=== PATIENT | male | born 1950 | race Caucasian/White ===

== ENCOUNTER → 2017-02-07 | Outpatient (CLI) | payer MEDICARE, OTHER ==
[~2017-02-07] VITALS: Ht 165.1 cm; Wt 106.8 kg
[~2017-02-07] MED LIST: ACET-2321 PO; ALLO300T2 PO; ASPI-557 PO; ASPI-917 PO; ATOR20TA59 PO; ATOR40TA64 PO; CARV12.52 PO; CARV25TA PO; CLOP75TA19 PO; COLC0.6T70 PO; FURO40TA70 PO; MELO-273 PO; NAPR220T61 PO; NITR12SP5; PANT40TA27 PO; POLY17PO18 PO; POTA10TA92 PO; REGADENOSON 0.4mg/5ml INJECTION IV ONE; SALINE FLUSH 10ml SYRINGE ONE; TRAM50TA53 PO; UBID100C10 PO; VENL150T7 PO; ZOLP-109 PO
--- NOTE | 2017-02-09 10:36 | ESTF ---
PHARMACOLOGICAL STRESS NUCLEAR SCAN DATE 02/07/2017 INDICATION PROCEDURE The patient was unable to fully exercise on the treadmill. The patient underwent injection of technetium-99m Myoview dose of 13.2 mCi, Lexiscan dose of 0.4 mg with low-level exercise followed by technetium-99m Myoview dose of 27.3 mCi. Stress and rest perfusion images were obtained per protocol. Rest EKG shows sinus rhythm, nonspecific T-wave abnormality present throughout less than 0.5 mm in inferolateral leads. In early recovery appeared to be increased ST segment depression, borderline 0.5-1 mm, and essentially back to baseline 4 minutes into recovery. There was some additional artifact noted in recovery, however, on some strips. There was occasional PVCs present as well. The EKG portion is considered borderline positive. Stress and rest perfusion images showed reduced uptake in the anteroseptum into the mid anterior wall of a mild to moderate degree and appeared to redistribute on rest images suggestive of mild to moderate reversible ischemia. This area actually extends to the anterolateral wall as well. Some reduced uptake is noted in the inferolateral wall with equivocal to mild redistribution there. Gated images show normal wall motion, normal contractility, normal LV ejection fraction which measured 58% on stress images and 62% on rest images. Rotatogram did not show any significant abnormality. IMPRESSION: 1. Inability to perform full treadmill test. 2. Pharmacological/low-level exercise stress nuclear scan clinically associated with mild dyspnea but no chest pain, electrically borderline positive with mild additional ST segment depression as noted above and occasional PVCs and scintigraphically positive for up to moderate reversible ischemia in the anterior and anteroseptal wall. In addition, equivocal reversible ischemia in the inferior/inferolateral wall is noted. 3. Gated images show normal wall motion, normal contractility, and normal LV ejection fraction - 58% on stress images and 62% on rest images. DISCUSSION AND PLAN Discuss results with the patient regarding further management and consideration of heart catheterization. JAYDEN
== END ==
LOC: IMA 07:44
PROVIDERS: ATTEND Internal Medicine Cardiovascular Disease
DX: I49.3 Ventricular premature depolarization (principal); R06.00 Dyspnea, unspecified; R26.2 Difficulty in walking, not elsewhere classified; R94.39 Abnormal result of other cardiovascular function study; I20.9 Angina pectoris, unspecified
CPT/HCPCS: 78452; 93017; A9502; J2785

== ENCOUNTER 2017-02-13 14:09 | Inpatient (IN) | payer MEDICARE, OTHER ==
[~2017-02-13] VITALS: Ht 165.1 cm; Wt 109.0 kg
[2017-02-13] VITALS (12 sets, daily range): BP systolic 115–141; BP diastolic 64–80; PULSE 66–78; RESP 11–24; TEMP 98–98.4; O2SAT 89–95; Ht 165.1 cm; Wt 109.0 kg
[~2017-02-13 14:09] MED LIST changes: -ASPI-557 PO; -ATOR40TA64 PO; -CARV12.52 PO; -MELO-273 PO; -REGADENOSON 0.4mg/5ml INJECTION IV ONE; -SALINE FLUSH 10ml SYRINGE ONE
--- OUTSIDE RECORDS SUMMARY | 2017-02-13 14:15 | XMS REPORT | Referral Summary ---
Author Author [facility] Organization [facility] Address Unknown Phone Unavailable Care Team Providers Care Protective Signal Operator Name Role Phone Leida Aranda Primary Care Physician [phone] Encounter [facility] [id number] Date(s): 07/01/15 - 07/01/15 [facility] [address] [place] [phone] Discharge Disposition: 01-Home or Self Care Attending Physician: Ahmet Aranda MD Admitting Physician: Ahmet Aranda MD Vital Signs Most recent to 1 oldest [Reference Range]: Blood Pressure 122/74 mmHg [90-140/60-90 mmHg] (07/01/15 10:02 AM) Problem List Condition Effective Dates Status Health Status Informant CAD (coronary artery Active disease) of artery bypass graft(Confirmed) Essential Active hypertension, benign(Confirmed) Hematuria(Confirmed) Active Diabetes(Confirmed) Active Acute Active gout(Confirmed) Renal Active calculus(Confirmed) Restless leg Active syndrome(Confirmed) Encounter for Active prostate cancer screening(Confirmed) Tension Active headaches(Confirmed) Upper abdominal pain Active L and R(Confirmed) Ureteral Active calculus(Confirmed) Allergies, Adverse Reactions, Alerts No Known Medication Allergies Medications acetaminophen 325 mg oral tablet 650 mg 2 tabs, Oral, QID, 0 Refill(s) Start Date: 01/08/16 Status: Ordered allopurinol 300 mg oral tablet 300 mg 1 tabs, Oral, Daily, # 90 tabs, 1 Refill(s), Pharmacy: [facility] # [id number], 1 tabs Oral Daily Start Date: 11/11/15 Status: Ordered Ambien 10 mg oral tablet 10 mg 1 tabs, Oral, Bedtime (once a day), MUST LAST 90 DAYS [facility] /DR. DOMINGUEZ FOR DR. ARANDA, # 90 Each, 0 Refill(s) Start Date: 12/07/15 Status: Ordered aspirin 81 mg oral tablet, disintegrating 1 tabs, Oral, Daily, 0 Refill(s) Start Date: 10/07/14 Status: Ordered atorvastatin 20 mg oral tablet 20 mg 1 tabs, Oral, Daily, Dr. Rich, # 30 tabs, 0 Refill(s) Start Date: 12/29/15 Status: Ordered carvedilol 12.5 mg oral tablet 12.5 mg 1 tabs, Oral, BID, # 180 tabs, 0 Refill(s) Start Date: 11/11/15 Status: Ordered Co-Q10 Oral, 0 Refill(s) Start Date: 12/29/15 Status: Ordered Colcrys 0.6 mg oral tablet 1.2 mg 2 tabs, Oral, Daily, as needed for gout pain, 2 tabs at the first sign of a gout flare followed by 0.6 mg one hour later, # 30 tabs, 0 Refill(s), Pharmacy: [id number] Start Date: 06/26/15 Stop Date: 06/26/15 Status: Ordered Glucometer strips (DME) DME Item Contour Test Strips. Test blood sugars daily as directed by physician. , See Instructions, 0 Refill(s), Supply Start Date: 10/07/14 Status: Ordered Klor-Con M10 oral tablet, extended release 10 mEq 1 tabs, Oral, Daily, # 90 tabs, 1 Refill(s), Pharmacy: [facility] # [id number], 1 tabs Oral Daily,x90 days Start Date: 12/24/15 Stop Date: 03/23/16 Status: Ordered Lasix 40 mg oral tablet 40 mg 1 tabs, Oral, BID, # 90 tabs, 1 Refill(s), Pharmacy: [facility] # [id number], 1 tabs Oral Daily Start Date: 11/03/15 Status: Ordered MiraLax 17 g, Oral, Daily, 0 Refill(s) Start Date: 01/08/16 Status: Ordered nitroglycerin 0.4 mg sublingual spray 1 sprays, SubLingual, as needed for chest pain, may repeat 2 times with about 5 min between them, 0 Refill(s) Start Date: 10/07/14 Status: Ordered oxyCODONE 5 mg oral tablet 1-3 tabs, Oral, q3hr, as needed for pain, 0 Refill(s) Start Date: 01/08/16 Status: Ordered pantoprazole 40 mg oral delayed release tablet See Instructions, TAKE 1 TABLET DAILY, # 90 tabs, 3 Refill(s), eRx: [facility], TAKE 1 TABLET DAILY Start Date: 03/09/15 Status: Ordered Plavix 75 mg oral tablet 75 mg 1 tabs, Oral, Daily, # 30 tabs, 3 Refill(s), Pharmacy: [facility] # [id number], 1 tabs Oral Daily Start Date: 11/30/15 Status: Ordered venlafaxine 150 mg oral tablet, extended release See Instructions, TAKE 1 TABLET(=150MG)EVERY DAY IN THE MORNING AT THE SAME TIME EACH DAY WITH FOOD, # 90 tabs, 1 Refill(s), eRx: [facility], TAKE 1 TABLET(=150MG)EVERY DAY IN THE MORNING AT THE SAME TIME EACH DAY WITH FOOD Start Date: 04/28/15 Status: Ordered Results No data available for this section Immunizations Vaccine Date Refusal Reason pneumococcal 23-polyvalent vaccine 10/24/07 Procedures Procedure Date Related Diagnosis Body Site S/P quadruple vessel bypass 06/05/14 Cysto, removal of RT DBL J stent 10/13/10 Cysto, balloon dil, RT DBL J stent RT LITHO 09/22/10 Chondroplasty R knee (w/PPM/PLM) buhr 10/19/07 R knee PMM/PLM w/chondroplasty Buhr 10/19/07 L knee PMM/PLM Buhr 06/22/07 Lithotripsy 07/23/03 Lithotripsy 04/21/99 Cystourethroscopy 04/20/99 Ureteroscopy 04/20/99 Lithotripsy 03/24/99 cystourethroscopy and removal of stent Social History Social History Type Response Smoking Status Former smoker; Type: Oral1, 2 1Quit "a few months ago" 2current chewing Assessment and Plan Extracted from: Title: Ambulatory Patient Education Author: Ahmet Aranda MD Date: Family Medicine Gout Gout is an inflammatory arthritis caused by a buildup of uric acid crystals in the joints. Uric acid is a chemical that is normally present in the blood. When the level of uric acid in the blood is too high it can form crystals that deposit in your joints and tissues. This causes joint redness, soreness, and swelling (inflammation). Repeat attacks are common. Over time, uric acid crystals can form into masses (tophi) near a joint, destroying bone and causing disfigurement. Gout is treatable and often preventable. CAUSES The disease begins with elevated levels of uric acid in the blood. Uric acid is produced by your body when it breaks down a naturally found substance called purines. Certain foods you eat, such as meats and fish, contain high amounts of purines. Causes of an elevated uric acid level include: Being passed down from parent to child (heredity). Diseases that cause increased uric acid production (such as obesity, psoriasis, and certain cancers). Excessive alcohol use. Diet, especially diets rich in meat and seafood. Medicines, including certain cancer-fighting medicines (chemotherapy), water pills (diuretics), and aspirin. Chronic kidney disease. The kidneys are no longer able to remove uric acid well. Problems with metabolism. Conditions strongly associated with gout include: Obesity. High blood pressure. High cholesterol. Diabetes. Not everyone with elevated uric acid levels gets gout. It is not understood why some people get gout and others do not. Surgery, joint injury, and eating too much of certain foods are some of the factors that can lead to gout attacks. SYMPTOMS An attack of gout comes on quickly. It causes intense pain with redness, swelling, and warmth in a joint. Fever can occur. Often, only one joint is involved. Certain joints are more commonly involved: Base of the big toe. Knee. Ankle. Wrist. Finger. Without treatment, an attack usually goes away in a few days to weeks. Between attacks, you usually will not have symptoms, which is different from many other forms of arthritis. DIAGNOSIS Your caregiver will suspect gout based on your symptoms and exam. In some cases , tests may be recommended. The tests may include: Blood tests. Urine tests. X-rays. Joint fluid exam. This exam requires a needle to remove fluid from the joint (arthrocentesis). Using a microscope, gout is confirmed when uric acid crystals are seen in the joint fluid. TREATMENT There are two phases to gout treatment: treating the sudden onset (acute) attack and preventing attacks (prophylaxis). Treatment of an Acute Attack. Medicines are used. These include anti-inflammatory medicines or steroid medicines. An injection of steroid medicine into the affected joint is sometimes necessary. The painful joint is rested. Movement can worsen the arthritis. You may use warm or cold treatments on painful joints, depending which works best for you. Treatment to Prevent Attacks. If you suffer from frequent gout attacks, your caregiver may advise preventive medicine. These medicines are started after the acute attack subsides. These medicines either help your kidneys eliminate uric acid from your body or decrease your uric acid production. You may need to stay on these medicines for a very long time. The early phase of treatment with preventive medicine can be associated with an increase in acute gout attacks. For this reason, during the first few months of treatment, your caregiver may also advise you to take medicines usually used for acute gout treatment. Be sure you understand your caregiver's directions. Your caregiver may make several adjustments to your medicine dose before these medicines are effective. Discuss dietary treatment with your caregiver or dietitian. Alcohol and drinks high in sugar and fructose and foods such as meat, poultry, and seafood can increase uric acid levels. Your caregiver or talent buyer can advise you on drinks and foods that should be limited. HOME CARE INSTRUCTIONS Do not take aspirin to relieve pain. This raises uric acid levels. Only take [id number] or prescription medicines for pain, discomfort, or fever as directed by your caregiver. Rest the joint as much as possible. When in bed, keep sheets and blankets off painful areas. Keep the affected joint raised (elevated). Apply warm or cold treatments to painful joints. Use of warm or cold treatments depends on which works best for you. Use crutches if the painful joint is in your leg. Drink enough fluids to keep your urine clear or pale yellow. This helps your body get rid of uric acid. Limit alcohol, sugary drinks, and fructose drinks. Follow your dietary instructions. Pay careful attention to the amount of protein you eat. Your daily diet should emphasize fruits, vegetables, whole grains, and fat-free or low-fat milk products. Discuss the use of coffee, vitamin C, and cherries with your caregiver or talent buyer. These may be helpful in lowering uric acid levels. Maintain a healthy body weight. SEEK MEDICAL CARE IF: You develop diarrhea, vomiting, or any side effects from medicines. You do not feel better in 24 hours, or you are getting worse. SEEK IMMEDIATE MEDICAL CARE IF: Your joint becomes suddenly more tender, and you have chills or a fever. MAKE SURE YOU: Understand these instructions. Will watch your condition. Will get help right away if you are not doing well or get worse. Document Released: 10/20/2001 Document Revised: 02/17/2014 Document Reviewed: Exit[employer] Patient Information 2015 [employer]. This information is not intended to replace advice given to you by your health care provider. Make sure you discuss any questions you have with your health care provider. No follow up information was provided. Extracted from: Title: Office Visit Note Author: Ahmet Aranda MD Date: 07/01/15 Assessment/Plan Acute gout Continue with the current medication and recheck a uric acid level in 2 weeks. Start Allopurinol 100mg daily. Ordered: Office Visit Level 3 Est 66051
--- OUTSIDE RECORDS SUMMARY | 2017-02-13 14:15 | XMS REPORT | Referral Summary ---
Author Author [facility] Organization [facility] Address Unknown Phone Unavailable Care Team Providers Care Steam Shovelman Name Role Phone Leida Aranda Primary Care Physician [phone] Encounter [facility] [id number] Date(s): 01/14/16 - 01/14/16 [facility] [address] [place] [phone] Discharge Disposition: 01-Home or Self Care Attending Physician: Ahmet Aranda MD Admitting Physician: Ahmet Aranda MD Vital Signs Most recent to 1 oldest [Reference Range]: Blood Pressure 138/70 mmHg [90-140/60-90 mmHg] (01/14/16 10:23 AM) Problem List Condition Effective Dates Status [...] Daily, # 90 tabs, 1 Refill(s), Pharmacy: [facility] # [id number], 1 tabs Oral Daily Start Date: 11/11/15 Status: Ordered Ambien 10 mg oral tablet 10 mg 1 tabs, Oral, Bedtime (once a day), MUST LAST 90 DAYS Robbie Howard, # 90 Each, 0 Refill(s) Start Date: 01/14/16 Status: Ordered aspirin 81 mg oral tablet, disintegrating 1 tabs, Oral, Daily, 0 Refill(s) Start Date: 10/07/14 Status: Ordered atorvastatin 20 mg oral tablet 20 mg 1 tabs, Oral, Daily, Dr. Rich, # 30 tabs, 0 Refill(s) Start Date: 12/29/15 Status: Ordered carvedilol 12.5 mg oral tablet 12.5 mg 1 tabs, Oral, BID, # 180 tabs, 0 Refill(s) Start Date: 11/11/15 Status: Ordered cefadroxil 500 mg oral capsule 500 mg 1 caps, Oral, q12hr, X 10 days, # 20 caps, 0 Refill(s), Pharmacy: [facility] #[id number], 1 caps Oral q12hr,x10 days Start Date: 01/14/16 Stop Date: 01/24/16 Status: Ordered Co-Q10 Oral, 0 Refill(s) Start Date: 12/29/15 Status: Ordered Colcrys 0.6 mg oral tablet 1.2 mg 2 tabs, Oral, Daily, as needed for gout pain, 2 tabs at the first sign of a gout flare followed by 0.6 mg one hour later, # 30 tabs, 0 Refill(s), Pharmacy: [id number] Start Date: 06/26/15 Stop Date: 06/26/15 Status: Ordered Glucometer strips (DME) DME Item Contour Test Strips. Test blood sugars daily as directed by physician. , See Instructions, 0 Refill(s), Supply Start Date: 10/07/14 Status: Ordered Klor-Con M10 oral tablet, extended release 10 mEq 1 tabs, Oral, Daily, # 90 tabs, 1 Refill(s), Pharmacy: [facility] # [id number], 1 tabs Oral Daily,x90 days Start Date: 12/24/15 Stop Date: 03/23/16 Status: Ordered Lasix 40 mg oral tablet 40 mg 1 tabs, Oral, BID, # 90 tabs, 1 Refill(s), Pharmacy: [facility] # [id number], 1 tabs Oral Daily Start Date: 11/03/15 [...] DAILY, # 90 tabs, 3 Refill(s), eRx: [facility], TAKE 1 TABLET DAILY Start Date: 03/09/15 Status: Ordered Plavix 75 mg oral tablet 75 mg 1 tabs, Oral, Daily, # 30 tabs, 3 Refill(s), Pharmacy: [facility] # [id number], 1 tabs Oral Daily Start Date: 11/30/15 Status: Ordered venlafaxine 150 mg oral tablet, extended release See Instructions, TAKE 1 TABLET(=150MG)EVERY DAY IN THE MORNING AT THE SAME TIME EACH DAY WITH FOOD, # 90 tabs, 1 Refill(s), eRx: [facility], TAKE 1 TABLET(=150MG)EVERY DAY IN [...] months ago" 2current chewing Assessment and Plan No data available for this section
--- OUTSIDE RECORDS SUMMARY | 2017-02-13 14:16 | XMS REPORT | Referral Summary ---
Author Organization Unknown Address Unknown Phone Unavailable Care Team Providers Care Carpenter Labor Supervisor Name Role Phone Leida Aranda Primary Care Physician [phone] Encounter [facility] [id number] Date(s): 01/06/15 - 01/06/15 [address] [facility], [address] [place] [id number]- Discharge Diagnosis: Encounter for prostate cancer screening Discharge Diagnosis: CAD (coronary artery disease) of artery bypass graft Discharge Diagnosis: Essential hypertension, benign Discharge Diagnosis: Diabetes Discharge Disposition: Home or Self Care Attending Physician: Ahmet Aranda MD Admitting Physician: Ahmet Aranda MD Vital Signs Most recent to 1 oldest [Reference Range]: Temperature Tympanic 36.7 degC [36.6-38.1 degC] (01/06/15 8:47 AM) Blood Pressure 128/86 mmHg [90-140/60-90 mmHg] (01/06/15 8:47 AM) Problem List Condition Effective Dates Status Health Status Informant CAD (coronary artery Active disease) of artery bypass graft(Confirmed) Essential Active hypertension, benign(Confirmed) Hematuria(Confirmed) Active Diabetes(Confirmed) Active Renal Active calculus(Confirmed) Restless leg Active syndrome(Confirmed) Encounter for Active prostate cancer screening(Confirmed) Tension Active headaches(Confirmed) Upper abdominal pain Active L and R(Confirmed) Ureteral Active calculus(Confirmed) Allergies, Adverse Reactions, Alerts No Known Medication Allergies Medications Ambien 10 mg oral tablet 1 tabs, Oral, Bedtime (once a day), # 30 tabs, 0 Refill(s) Start Date: 10/08/14 Status: Ordered aspirin 81 mg oral tablet, disintegrating 1 tabs, Oral, Daily, 0 Refill(s) Start Date: 10/07/14 Status: Ordered carvedilol 12.5 mg oral tablet 1 tabs, Oral, BID, # 180 tabs, 0 Refill(s) Start Date: 10/08/14 Status: Ordered gemfibrozil 600 mg oral tablet 1 tabs, Oral, BID, # 180 tabs, 0 Refill(s) Start Date: 10/08/14 Status: Ordered Glucometer strips (DME) DME Item Contour Test Strips. Test blood sugars daily as directed by physician. , See Instructions, 0 Refill(s), Supply Special Instructions: Contour Test Strips. Test blood sugars daily as directed by physician. Start Date: 10/07/14 Status: Ordered Klor-Con 10 oral tablet, extended release See Instructions, TAKE 1 TABLET DAILY *PLEASEMAKE APPOINTMENT*, # 90 tabs, 1 Refill(s), eRx: [facility], TAKE 1 TABLET DAILY * PLEASEMAKE APPOINTMENT* Special Instructions: TAKE 1 TABLET DAILY *PLEASEMAKE APPOINTMENT* Start Date: 11/27/14 Status: Ordered Lasix 40 mg oral tablet 1 tabs, Oral, Daily, # 90 tabs, 3 Refill(s), Pharmacy: [facility], 1 tabs Oral Daily Start Date: 10/08/14 Status: Ordered nitroglycerin 0.4 mg sublingual spray 1 sprays, SubLingual, as needed for chest pain, may repeat 2 times with about 5 min between them, 0 Refill(s) Special Instructions: may repeat 2 times with about 5 min between them Start Date: 10/07/14 Status: Ordered pantoprazole 40 mg oral delayed release tablet See Instructions, TAKE 1 TABLET BY MOUTH EVERY DAY., # 90 unknown unit, 3 Refill (s), eRx: [facility], TAKE 1 TABLET BY MOUTH EVERY DAY. Special Instructions: TAKE 1 TABLET BY MOUTH EVERY DAY. Start Date: 04/10/14 Status: Ordered Plavix 75 mg oral tablet See Instructions, TAKE 1 TABLET DAILY, # 90 tabs, 1 Refill(s), eRx: [facility], TAKE 1 TABLET DAILY Special Instructions: TAKE 1 TABLET DAILY Start Date: 06/30/14 Status: Ordered venlafaxine 150 mg oral tablet, extended release See Instructions, TAKE 1 TABLET(=150MG)EVERY DAY IN THE MORNING AT THE SAME TIME EACH DAY WITH FOOD, # 90 tabs, 1 Refill(s), Pharmacy: [facility], TAKE 1 TABLET(=150MG)EVERY DAY IN THE MORNING AT THE SAME TIME EACH DAY WITH... Special Instructions: TAKE 1 TABLET(=150MG)EVERY DAY IN THE MORNING AT THE SAME TIME EACH DAY WITH FOOD Start Date: 12/22/14 Status: Ordered Results Hematology Most recent to 1 oldest [Reference Range]: WBC [4.8-10.8 K/uL] 6.3 K/uL (01/06/15 9:37 AM) RBC [4.60-6.20 M/uL] 4.86 M/uL (01/06/15 9:37 AM) Hgb [14.0-18.0 14.8 gm/dL gm/dL] (01/06/15 9:37 AM) Hct [42.0-52.0 %] 44.1 % (01/06/15 9:37 AM) MCV [82.0-99.0 fL] 90.7 fL (01/06/15 9:37 AM) MCH [27.0-32.0 pg] 30.5 pg (01/06/15 9:37 AM) MCHC [32.0-36.0 33.6 gm/dL gm/dL] (01/06/15 9:37 AM) RDW [11.5-14.5 %] 13.4 % (01/06/15 9:37 AM) Platelet [150-400 344 K/uL K/uL] (01/06/15 9:37 AM) MPV [8.8-14.8 fL] 9.8 fL (01/06/15 9:37 AM) Immature 0.2 % Granulocytes (01/06/15 9:37 AM) [0.0-1.0 %] Neutrophils [51-75 53 % %] (01/06/15 9:37 AM) Lymphocytes [20-46 35 % %] (01/06/15 9:37 AM) Monocytes [4-11 %] 10 % (01/06/15 9:37 AM) Eosinophils [0-4 %] 2 % (01/06/15 9:37 AM) Basophils [0-2 %] 0 % (01/06/15 9:37 AM) Neutro Absolute 3.36 THOUS [1.90-7.00 THOUS] (01/06/15 9:37 AM) Lymph Absolute 2.20 THOUS [0.80-3.30 THOUS] (01/06/15 9:37 AM) [place] Absolute 0.61 THOUS [0.30-1.00 THOUS] (01/06/15 9:37 AM) Eos Absolute 0.11 THOUS [0.00-0.50 THOUS] (01/06/15 9:37 AM) Baso Absolute 0.02 THOUS [0.00-0.20 THOUS] (01/06/15 9:37 AM) Chemistry Most recent to 1 oldest [Reference Range]: Sodium Lvl [135-144 142 mEq/L mEq/L] (01/06/15:37 AM) Potassium Lvl 3.9 mEq/L [3.5-5.2 mEq/L] (01/06/15:37 AM) Chloride [99-111 105 mEq/L mEq/L] (01/06/15:37 AM) CO2 [23-31 mEq/L] 24 mEq/L (01/06/15:37 AM) AGAP [3-20] 13 (01/06/15:37 AM) BUN [8-26 mg/dL] 19 mg/dL (01/06/15:37 AM) Glucose Lvl [70-99 136 mg/dL mg/dL] *HI* (01/06/15:37 AM) Creatinine Lvl 0.94 mg/dL [0.72-1.25 mg/dL] (01/06/15 9:37 AM) eGFR [>60 mL/min] >60 mL/min 1 (01/06/15:37 AM) Calcium Lvl 9.6 mg/dL [8.9-10.5 mg/dL] (01/06/15:37 AM) Albumin Lvl [3.4-4.8 4.3 gm/dL gm/dL] (01/06/15:37 AM) Total Protein 7.1 gm/dL [6.2-8.1 gm/dL] (01/06/15:37 AM) Globulin [1.8-4.0 2.8 gm/dL gm/dL] (01/06/15 9:37 AM) ALT [0-55 unit/L] 20 unit/L (01/06/15:37 AM) AST [5-34 unit/L] 17 unit/L (01/06/15 9:37 AM) Alk Phos [40-150 116 unit/L unit/L] (01/06/15 9:37 AM) Bili Total [0.2-1.2 0.6 mg/dL mg/dL] (01/06/15 9:37 AM) PSA (wihout Reflex 2.5 ng/mL 2 Free) [0.0-4.5 (01/06/15 9:37 AM) ng/mL] Chol [0-199 mg/dL] 170 mg/dL (01/06/15 9:37 AM) Trig [0-149 mg/dL] 98 mg/dL (01/06/15 9:37 AM) HDL [40-84 mg/dL] 46 mg/dL (01/06/15 9:37 AM) LDL [0-130 mg/dL] 104 mg/dL (01/06/15 9:37 AM) VLDL Cholesterol 20 mg/dL [0-28 mg/dL] (01/06/15 9:37 AM) Cardiac Risk 3.7 [0.0-5.7] (01/06/15 9:37 AM) Hgb A1c [4.1-5.6 %] 6.1 % *HI* (01/06/15 9:37 AM) eAvg Glucose 128.4 mg/dL (01/06/15 9:37 AM) 1Result Comment: Multiply eGFR results by 1.21 for race. 2Result Comment: [facility]UA PSA Best Practice Guidelines: Age-Adjusted PSA Values by Ethnic Group Age Range Asians - Caucasians Americans 40-49 0-2.0 0-2.0 0-2.5 50-59 0-3.0 0-4.0 0-3.5 60-69 0-4.0 0-4.5 0-4.5 70-79 0-5.0 0-5.5 0-6.5 Immunizations Vaccine Date Refusal Reason pneumococcal 23-polyvalent vaccine 10/24/07 Procedures Procedure Date Related Diagnosis Body Site Collection of venous blood by venipuncture 01/06/15 Cysto, removal of RT DBL J stent 10/13/10 Cysto, balloon dil, RT DBL J stent RT LITHO 09/22/10 Chondroplasty R knee (w/PPM/PLM) buhr 10/19/07 R knee PMM/PLM w/chondroplasty Buhr 10/19/07 L knee PMM/PLM Buhr 06/22/07 Lithotripsy 07/23/03 Lithotripsy 04/21/99 Cystourethroscopy 04/20/99 Ureteroscopy 04/20/99 Lithotripsy 03/24/99 cystourethroscopy and removal of stent Social History Social History Type Response Smoking Status Unknown if ever smoked; Type: Oral1 1current chewing Assessment and Plan Extracted from: Title: Ambulatory Patient Education Author: Ahmet Aranda MD Date: 01/06 Family Medicine Blood Sugar Monitoring, Adult GLUCOSE METERS FOR SELF-MONITORING OF BLOOD GLUCOSE It is important to be able to correctly measure your blood sugar (glucose ). You can use a blood glucose monitor (a small battery-operated device) to check your glucose level at any time. This allows you and your caregiver to monitor your diabetes and to determine how well your treatment plan is working. The process of monitoring your blood glucose with a glucose meter is called self- monitoring of blood glucose (SMBG). When people with diabetes control their blood sugar, they have better health. To test for glucose with a typical glucose meter, place the disposable strip in the meter. Then place a small sample of blood on the "test strip." The test strip is coated with chemicals that combine with glucose in blood. The meter measures how much glucose is present. The meter displays the glucose level as a number. Several new models can record and store a number of test results. Some models can connect to personal computers to store test results or print them out. Newer meters are often easier to use than older models. Some meters allow you to get blood from places other than your fingertip. Some new models have automatic timing, error codes, signals, or barcode readers to help with proper adjustment (calibration ). Some meters have a large display screen or spoken instructions for people with visual impairments. INSTRUCTIONS FOR USING GLUCOSE METERS Wash your hands with soap and warm water, or clean the area with alcohol. Dry your hands completely. Prick the side of your fingertip with a lancet (a sharp-pointed tool used by hand). Hold the hand down and gently milk the finger until a small drop of blood appears. Catch the blood with the test strip. Follow the instructions for inserting the test strip and using the SMBG meter. Most meters require the meter to be turned on and the test strip to be inserted before applying the blood sample. Record the test result. Read the instructions carefully for both the meter and the test strips that go with it. Meter instructions are found in the user manual. Keep this manual to help you solve any problems that may arise. Many meters use "error codes" when there is a problem with the meter, the test strip, or the blood sample on the strip. You will need the manual to understand these error codes and fix the problem. New devices are available such as laser lancets and meters that can test blood taken from "alternative sites" of the body, other than fingertips. However , you should use standard fingertip testing if your glucose changes rapidly. Also, use standard testing if: You have eaten, exercised, or taken insulin in the past 2 hours. You think your glucose is low. You tend to not feel symptoms of low blood glucose (hypoglycemia ). You are ill or under stress. Clean the meter as directed by the center receptionist. Test the meter for accuracy as directed by the center receptionist. Take your meter with you to your caregiver's office. This way, you can test your glucose in front of your caregiver to make sure you are using the meter correctly. Your caregiver can also take a sample of blood to test using a routine lab method. If values on the glucose meter are close to the lab results , you and your caregiver will see that your meter is working well and you are using good technique. Your caregiver will advise you about what to do if the results do not match. FREQUENCY OF TESTING Your caregiver will tell you how often you should check your blood glucose. This will depend on your type of diabetes, your current level of diabetes control, and your types of medicines. The following are general guidelines, but your care plan may be different. Record all your readings and the time of day you took them for review with your caregiver. Diabetes type 1. When you are using insulin with good diabetic control (either multiple daily injections or via a pump), you should check your glucose 4 times a day. If your diabetes is not well controlled, you may need to monitor more frequently, including before meals and 2 hours after meals, at bedtime, and occasionally between 2 a.m. and 3 a.m. You should always check your glucose before a dose of insulin or before changing the rate on your insulin pump. Diabetes type 2. Guidelines for SMBG in diabetes type 2 are not as well defined. If you are on insulin, follow the guidelines above. If you are on medicines, but not insulin, and your glucose is not well controlled, you should test at least twice daily. If you are not on insulin, and your diabetes is controlled with medicines or diet alone, you should test at least once daily, usually before breakfast. A weekly profile will help your caregiver advise you on your care plan. The week before your visit, check your glucose before a meal and 2 hours after a meal at least daily. You may want to test before and after a different meal each day so you and your caregiver can tell how well controlled your blood sugars are throughout the course of a 24 hour period. Gestational diabetes (diabetes during ). Frequent testing is often necessary. Accurate timing is important. If you are not on insulin, check your glucose 4 times a day. Check it before breakfast and 1 hour after the start of each meal. If you are on insulin, check your glucose 6 times a day. Check it before each meal and 1 hour after the first bite of each meal. General guidelines. More frequent testing is required at the start of insulin treatment. Your caregiver will instruct you. Test your glucose any time you suspect you have low blood sugar ( hypoglycemia ). You should test more often when you change medicines, when you have unusual stress or illness, or in other unusual circumstances. OTHER THINGS TO KNOW ABOUT GLUCOSE METERS Measurement Range. Most glucose meters are able to read glucose levels over a broad range of values from as low as 0 to as high as 600 mg/dL. If you get an extremely high or low reading from your meter, you should first confirm it with another reading. Report very high or very low readings to your caregiver. Whole Blood Glucose versus Plasma Glucose. Some older home glucose meters measure glucose in your whole blood. In a lab or when using some newer home glucose meters, the glucose is measured in your plasma (one component of blood) . The difference can be important. It is important for you and your caregiver to know whether your meter gives its results as "whole blood equivalent" or "plasma equivalent." Display of High and Low Glucose Values. Part of learning how to operate a meter is understanding what the meter results mean. Know how high and low glucose concentrations are displayed on your meter. Factors that Affect Glucose Meter Performance. The accuracy of your test results depends on many factors and varies depending on the brand and type of meter. These factors include: Low red blood cell count (anemia ). Substances in your blood (such as uric acid, vitamin C, and others). Environmental factors (temperature, humidity, altitude). Name-brand versus generic test strips. Calibration. Make sure your meter is set up properly. It is a good idea to do a calibration test with a control solution recommended by the center receptionist of your meter whenever you begin using a fresh bottle of test strips. This will help verify the accuracy of your meter. Improperly stored, , or defective test strips. Keep your strips in a dry place with the lid on. Soiled meter. Inadequate blood sample. NEW TECHNOLOGIES FOR GLUCOSE TESTING Alternative site testing Some glucose meters allow testing blood from alternative sites. These include the: Upper arm. Forearm. Base of the thumb. Thigh. Sampling blood from alternative sites may be desirable. However, it may have some limitations. Blood in the fingertips show changes in glucose levels more quickly than blood in other parts of the body. This means that alternative site test results may be different from fingertip test results, not because of the meter's ability to test accurately, but because the actual glucose concentration can be different. Continuous Glucose Monitoring Devices to measure your blood glucose continuously are available, and others are in development. These methods can be more expensive than self-monitoring with a glucose meter. However, it is uncertain how effective and reliable these devices are. Your caregiver will advise you if this approach makes sense for you. IF BLOOD SUGARS ARE CONTROLLED, PEOPLE WITH DIABETES REMAIN HEALTHIER. SMBG is an important part of the treatment plan of patients with diabetes mellitus. Below are reasons for using SMBG: It confirms that your glucose is at a specific, healthy level. It detects hypoglycemia and severe hyperglycemia. It allows you and your caregiver to make adjustments in response to changes in lifestyle for individuals requiring medicine. It determines the need for starting insulin therapy in temporary diabetes that happens during (gestational diabetes ). Document Released: 10/25/2004 Document Revised: 01/14/2013 Document Reviewed: [employer] Patient Information 2014 [employer] [facility]. Diabetes and Foot Care Diabetes may cause you to have a poor blood supply (circulation ) to your legs and feet. Because of this, the skin may be thinner, break easier, and heal more slowly. You also may have nerve damage in your legs and feet causing decreased feeling. You may not notice minor injuries to your feet that could lead to serious problems or infections. Taking care of your feet is one of the most important things you can do for yourself. HOME CARE INSTRUCTIONS Do not go barefoot. Bare feet are easily injured. Check your feet daily for blisters, cuts, and redness. Wash your feet with warm water (not hot) and mild soap. Pat your feet and between your toes until completely dry. Apply a moisturizing lotion that does not contain alcohol or petroleum jelly to the dry skin on your feet and to dry brittle toenails. Do not put it between your toes. Trim your toenails straight across. Do not dig under them or around the cuticle. Do not cut corns or calluses, or try to remove them with medicine. Wear clean cotton socks or stockings every day. Make sure they are not too tight. Do not wear knee high stockings since they may decrease blood flow to your legs. Wear leather shoes that fit properly and have enough cushioning. To break in new shoes, wear them just a few hours a day to avoid injuring your feet. Wear shoes at all times, even in the house. Do not cross your legs. This may decrease the blood flow to your feet. If you find a minor scrape, cut, or break in the skin on your feet, keep it and the skin around it clean and dry. These areas may be cleansed with mild soap and water. Do not use peroxide, alcohol, iodine or Merthiolate. When you remove an adhesive bandage, be sure not to harm the skin around it. If you have a wound, look at it several times a day to make sure it is healing. Do not use heating pads or hot water bottles. Deal can occur. If you have lost feeling in your feet or legs, you may not know it is happening until it is too late. Report any cuts, sores or bruises to your caregiver. Do not wait! SEEK MEDICAL CARE IF: You have an injury that is not healing or you notice redness, numbness, burning, or tingling. Your feet always feel cold. You have pain or cramps in your legs and feet. SEEK IMMEDIATE MEDICAL CARE IF: There is increasing redness, swelling, or increasing pain in the wound. There is a red line that goes up your leg. Pus is coming from a wound. You develop an unexplained oral temperature above 102 F (38.9 C), or as your caregiver suggests. You notice a bad smell coming from an ulcer or wound. MAKE SURE YOU: Understand these instructions. Will watch your condition. Will get help right away if you are not doing well or get worse. Document Released: 10/20/2001 Document Revised: 01/14/2013 Document Reviewed: [facility] Patient Information 2014 [employer]. How to Avoid Diabetes Problems You can do a lot to prevent or slow down diabetes problems. Following your diabetes plan and taking care of yourself can reduce your risk of serious or life-threatening complications. Below, you will find certain things you can do to prevent diabetes problems. MANAGE YOUR DIABETES Follow your caregiver's, nurse educator's, and dietitian's instructions for managing your diabetes. They will teach you the basics of diabetes care. They can help answer questions you may have. Learn about diabetes and make healthy choices regarding eating and physical activity. Monitor your blood glucose level regularly. Your caregiver will help you decide how often to check your blood glucose level depending on your treatment goals and how well you are meeting them. DO NOT SMOKE Smoking and diabetes are a dangerous combination. Smoking raises your risk for diabetes problems. If you quit smoking, you will lower your risk for heart attack, stroke, nerve disease, and kidney disease. Your cholesterol and your blood pressure levels may improve. Your blood circulation will also improve. If you smoke, ask your caregiver for help in quitting. KEEP YOUR BLOOD PRESSURE UNDER CONTROL Keeping your blood pressure under control will help prevent damage to your eyes , kidneys, heart, and blood vessels. Blood pressure consists of two numbers. The top number should be below 120, and the bottom number should be below 80 ( 120/80). Keep your blood pressure as close to these numbers as you can. If you already have kidney disease, you may want even lower blood pressure to protect your kidneys. Talk to your caregiver to make sure that your blood pressure goal is right for your needs. Meal planning, medicines, and exercise can help you reach your blood pressure target. Have your blood pressure checked at every visit with your caregiver. KEEP YOUR CHOLESTEROL UNDER CONTROL Normal cholesterol levels will help prevent heart disease and stroke. These are the biggest health problems for people with diabetes. Keeping cholesterol levels under control can also help with blood flow. Have your cholesterol level checked at least once a year. Meal planning, exercise, and medicines can help you reach your cholesterol targets. SCHEDULE AND KEEP YOUR ANNUAL PHYSICAL EXAMS AND EYE EXAMS Your caregiver will tell you how often he or she wants to see you depending on your plan of treatment. It is important that you keep these appointments so that possible problems can be identified early and complications can be avoided or treated. Every visit with your caregiver should include your weight, blood pressure , and an evaluation of your blood glucose control. Your hemoglobin A1c should be checked: At least twice a year if you are at your goal. Every 3 months if there are changes in treatment. If you are not meeting your goals. Your blood lipids should be checked yearly. You should also be checked yearly to see if you have protein in your urine (microalbumin ). Schedule a dilated eye exam if you have type 1 diabetes within 5 years of your diagnosis and then yearly. Schedule a dilated eye exam if you have type 2 diabetes at diagnosis and then yearly. All exams thereafter can be extended to every 2 to 3 years if one or more exams have been normal. KEEP YOUR VACCINES CURRENT The flu vaccine is recommended yearly. The formula for the vaccine changes every year and needs to be updated for the best protection against current viruses. In addition, you should get a vaccination against pneumonia at least once in your life. However, there are some instances where another vaccine is recommended. Check with your caregiver. TAKE CARE OF YOUR FEET Diabetes may cause you to have a poor blood supply (circulation ) to your legs and feet. Because of this, the skin may be thinner, break easier, and heal more slowly. You also may have nerve damage in your legs and feet causing decreased feeling. You may not notice minor injuries to your feet that could lead to serious problems or infections. Taking care of your feet is very important. Visual foot exams are performed at every routine medical visit. The exams check for cuts, injuries, or other problems with the feet. A comprehensive foot exam should be done yearly. This includes visual inspection as well as assessing foot pulses and testing for loss of sensation. You should also do the following : Inspect your feet daily for cuts, calluses, blisters, ingrown toenails, and signs of infection, such as redness, swelling, or pus. Wash and dry your feet thoroughly, especially between the toes. Avoid soaking your feet regularly in hot water baths. Moisturize dry skin with lotion, avoiding areas between your toes. Cut toenails straight across and file the edges. Avoid shoes that do not fit well or have areas that irritate your skin. Avoid going barefooted or wearing only socks. Your feet need protection. TAKE CARE OF YOUR TEETH People with poorly controlled diabetes are more likely to have gum (periodontal ) disease. These infections make diabetes harder to control. Periodontal diseases, if left untreated, can lead to tooth loss. [place] your teeth twice a day, floss, and see your dentist for checkups and cleaning every 6 months, or 2 times a year. ASK YOUR CAREGIVER ABOUT TAKING ASPIRIN Taking aspirin daily is recommended to help prevent cardiovascular disease in people with and without diabetes. Ask your caregiver if this would benefit you and what dose he or she would recommend. DRINK RESPONSIBLY Moderate amounts of alcohol (less than 1 drink per day for adult women and less than 2 drinks per day for adult men) have a minimal effect on blood glucose if ingested with food. It is important to eat food with alcohol to avoid hypoglycemia. People should avoid alcohol if they have a history of alcohol abuse or dependence, if they are , and if they have liver disease, pancreatitis, advanced neuropathy, or severe hypertriglyceridemia. LESSEN STRESS Living with diabetes can be stressful. When you are under stress, your blood glucose may be affected in two ways: Stress hormones may cause your blood glucose to rise. You may be distracted from taking good care of yourself. It is a good idea to be aware of your stress level and make changes that are necessary to help you better manage challenging situations. Support groups, planned relaxation, a hobby you enjoy, meditation, healthy relationships, and exercise all work to lower your stress level. If your efforts do not seem to be helping, get help from your caregiver or a trained mental health professional. Document Released: 07/10/2012 Document Revised: 10/09/2013 Document Reviewed: [facility] Patient Information 2014 [employer]. Hypertension As your heart beats, it forces blood through your arteries. This force is your blood pressure. If the pressure is too high, it is called hypertension (HTN) or high blood pressure. HTN is dangerous because you may have it and not know it. High blood pressure may mean that your heart has to work harder to pump blood. Your arteries may be narrow or stiff. The extra work puts you at risk for heart disease, stroke, and other problems. Blood pressure consists of two numbers, a higher number over a lower, 110/72, for example. It is stated as "110 over 72." The ideal is below 120 for the top number (systolic ) and under 80 for the bottom (diastolic ). Write down your blood pressure today. You should pay close attention to your blood pressure if you have certain conditions such as: Heart failure. Prior heart attack. Diabetes Chronic kidney disease. Prior stroke. Multiple risk factors for heart disease. To see if you have HTN, your blood pressure should be measured while you are seated with your arm held at the level of the heart. It should be measured at least twice. A one-time elevated blood pressure reading (especially in the Emergency Department) does not mean that you need treatment. There may be conditions in which the blood pressure is different between your right and left arms. It is important to see your caregiver soon for a recheck. Most people have essential hypertension which means that there is not a specific cause. This type of high blood pressure may be lowered by changing lifestyle factors such as: Stress. Smoking. Lack of exercise. Excessive weight. Drug/tobacco/alcohol use. Eating less salt. Most people do not have symptoms from high blood pressure until it has caused damage to the body. Effective treatment can often prevent, delay or reduce that damage. TREATMENT When a cause has been identified, treatment for high blood pressure is directed at the cause. There are a large number of medications to treat HTN. These fall into several categories, and your caregiver will help you select the medicines that are best for you. Medications may have side effects. You should review side effects with your caregiver. If your blood pressure stays high after you have made lifestyle changes or started on medicines, Your medication(s) may need to be changed. Other problems may need to be addressed. Be certain you understand your prescriptions, and know how and when to take your medicine. Be sure to follow up with your caregiver within the time frame advised ( usually within two weeks) to have your blood pressure rechecked and to review your medications. If you are taking more than one medicine to lower your blood pressure, make sure you know how and at what times they should be taken. Taking two medicines at the same time can result in blood pressure that is too low. SEEK IMMEDIATE MEDICAL CARE IF: You develop a severe headache, blurred or changing vision, or confusion. You have unusual weakness or numbness, or a faint feeling. You have severe chest or abdominal pain, vomiting, or breathing problems. MAKE SURE YOU: Understand these instructions. Will watch your condition. Will get help right away if you are not doing well or get worse. Document Released: 10/23/2006 Document Revised: 01/14/2013 Document Reviewed: [facility] [place] Patient Information 2014 [employer] [facility]. No follow up information was provided. Extracted from: Title: Office Visit Note Author: Ahmet Aranda MD Date: 01/06/15 Assessment/Plan CAD (coronary artery disease) of artery bypass graft No change in medications. Continue with the present program. Work on losing weight. Follow up in 6 months. and with your planer tailer. Lab today Ordered: CBC w/ Differential Lipid Panel Office Visit Level 4 Est 11903 Diabetes Ordered: Hemoglobin A1c Office Visit Level 4 Est 11562 Encounter for prostate cancer screening Ordered: Office Visit Level 4 Est 00324 Prostate Specific Antigen Essential hypertension, benign Ordered: Comprehensive Metabolic Panel Office Visit Level 4 Est 54479
--- OUTSIDE RECORDS SUMMARY | 2017-02-13 14:16 | XMS REPORT | Referral Summary ---
Author Author [facility] Organization [facility] Address Unknown Phone Unavailable Care Team Providers Care Astrophysics Professor Name Role Phone Leida Aranda Primary Care Physician [phone] Encounter [facility] [id number] Date(s): 07/17/15 - 07/17/15 [facility], [address] [place] [phone] Discharge Diagnosis: Acute idiopathic gout of hand Discharge Disposition: 01-Home or Self Care Attending Physician: Ahmet Aranda MD Admitting Physician: Ahmet Aranda MD Vital Signs Most recent to 1 oldest [Reference Range]: Blood Pressure 106/68 mmHg [90-140/60-90 mmHg] (07/17/15 10:23 AM) Problem List Condition Effective Dates Status Health Status Informant CAD (coronary artery Active disease) of artery bypass graft(Confirmed) Essential Active hypertension, benign(Confirmed) Hematuria(Confirmed) Active Diabetes(Confirmed) Active Acute Active gout(Confirmed) Status post left Active knee replacement(Confirme d) Renal Active calculus(Confirmed) Restless leg Active syndrome(Confirmed) [...] tabs, 1 Refill(s), Pharmacy: [facility] # [id number], 1 tabs Oral Daily Start Date: 11/11/15 [...] later, # 30 tabs, 0 Refill(s), Pharmacy: [id number] Start Date: 06/26/15 Stop Date: 06/26/15 Status: Ordered Glucometer strips (DME) DME Item Contour Test Strips. Test blood sugars daily as directed by physician. , See Instructions, 0 Refill(s), Supply Start Date: 10/07/14 Status: Ordered Klor-Con M10 oral tablet, extended release 10 mEq 1 tabs, Oral, Daily, # 90 tabs, 1 Refill(s), Pharmacy: [facility] # [id number], 1 tabs Oral Daily,x90 days Start Date: 12/24/15 Stop Date: 03/23/16 Status: Ordered Lasix 40 mg oral tablet 40 mg 1 tabs, Oral, BID, # 90 tabs, 1 Refill(s), Pharmacy: [facility] # [id number], 1 tabs Oral Daily Start Date: 11/03/15 [...] 3 Refill(s), eRx: [facility], TAKE 1 TABLET DAILY Start Date: 03/09/15 Status: Ordered Plavix 75 mg oral tablet 75 mg 1 tabs, Oral, Daily, # 30 tabs, 3 Refill(s), Pharmacy: [facility] # [id number], 1 tabs Oral Daily Start Date: 11/30/15 Status: Ordered venlafaxine 150 mg oral tablet, extended release See Instructions, TAKE 1 TABLET(=150MG)EVERY DAY IN THE MORNING AT THE SAME TIME EACH DAY WITH FOOD, # 90 tabs, 1 Refill(s), eRx: [facility], TAKE 1 TABLET(=150MG)EVERY DAY IN THE MORNING AT THE SAME TIME EACH DAY WITH FOOD Start Date: 04/28/15 Status: Ordered Results Hematology Most recent to 1 oldest [Reference Range]: Sed Rate [0-15] 23 *HI* (07/17/15 10:53 AM) Chemistry Most recent to 1 oldest [Reference Range]: Uric Acid [3.5-7.2 8.2 mg/dL mg/dL] *HI* (07/17/15 10:53 AM) Immunizations Vaccine Date Refusal Reason pneumococcal 23-polyvalent vaccine 10/24/07 Procedures Procedure Date Related Diagnosis Body Site Status post left knee replacement 2015 S/P quadruple vessel bypass 06/05/14 Cysto, removal [...] Patient Education Author: Ahmet Aranda MD Date: 09/20 Allergy Sinusitis Sinusitis is redness, soreness, and swelling (inflammation) of the paranasal sinuses. Paranasal sinuses are air pockets within the bones of your face ( beneath the eyes, the middle of the forehead, or above the eyes). In healthy paranasal sinuses, mucus is able to drain out, and air is able to circulate through them by way of your nose. However, when your paranasal sinuses are inflamed, mucus and air can become trapped. This can allow bacteria and other germs to grow and cause infection. Sinusitis can develop quickly and last only a short time (acute) or continue over a long period (chronic). Sinusitis that lasts for more than 12 weeks is considered chronic. CAUSES Causes of sinusitis include: Allergies. Structural abnormalities, such as displacement of the cartilage that separates your nostrils (deviated septum), which can decrease the air flow through your nose and sinuses and affect sinus drainage. Functional abnormalities, such as when the small hairs (cilia) that line your sinuses and help remove mucus do not work properly or are not present. SYMPTOMS Symptoms of acute and chronic sinusitis are the same. The primary symptoms are pain and pressure around the affected sinuses. Other symptoms include: Upper toothache. Earache. Headache. Bad breath. Decreased sense of smell and taste. A cough, which worsens when you are lying flat. Fatigue. Fever. Thick drainage from your nose, which often is green and may contain pus ( purulent). Swelling and warmth over the affected sinuses. DIAGNOSIS Your caregiver will perform a physical exam. During the exam, your caregiver may : Look in your nose for signs of abnormal growths in your nostrils (nasal polyps). Tap over the affected sinus to check for signs of infection. View the inside of your sinuses (endoscopy) with a special imaging device with a light attached (endoscope), which is inserted into your sinuses. If your caregiver suspects that you have chronic sinusitis, one or more of the following tests may be recommended: Allergy tests. Nasal cultureA sample of mucus is taken from your nose and sent to a lab and screened for bacteria. Nasal cytologyA sample of mucus is taken from your nose and examined by your caregiver to determine if your sinusitis is related to an allergy. TREATMENT Most cases of acute sinusitis are related to a viral infection and will resolve on their own within 10 days. Sometimes medicines are prescribed to help relieve symptoms (pain medicine, decongestants, nasal steroid sprays, or saline sprays) . However, for sinusitis related to a bacterial infection, your caregiver will prescribe antibiotic medicines. These are medicines that will help kill the bacteria causing the infection. Rarely, sinusitis is caused by a fungal infection. In theses cases, your caregiver will prescribe antifungal medicine. For some cases of chronic sinusitis, surgery is needed. Generally, these are cases in which sinusitis recurs more than 3 times per year, despite other treatments. HOME CARE INSTRUCTIONS Drink plenty of water. Water helps thin the mucus so your sinuses can drain more easily. Use a humidifier. Inhale steam 3 to 4 times a day (for example, sit in the bathroom with the shower running). Apply a warm, moist washcloth to your face 3 to 4 times a day, or as directed by your caregiver. Use saline nasal sprays to help moisten and clean your sinuses. Take [id number] or prescription medicines for pain, discomfort, or fever only as directed by your caregiver. SEEK IMMEDIATE MEDICAL CARE IF: You have increasing pain or severe headaches. You have nausea, vomiting, or drowsiness. You have swelling around your face. You have vision problems. You have a stiff neck. You have difficulty breathing. MAKE SURE YOU: Understand these instructions. Will watch your condition. Will get help right away if you are not doing well or get worse. Document Released: 10/23/2006 Document Revised: 01/14/2013 Document Reviewed: [employer]Care Patient Information 2015 [employer] [facility]. This information is not intended to replace advice given to you by your health care provider. Make sure you discuss any questions you have with your health care provider. Family Medicine Bronchitis Bronchitis is inflammation of the airways that extend from the windpipe into the lungs (bronchi). The inflammation often causes mucus to develop, which leads to a cough. If the inflammation becomes severe, it may cause shortness of breath. CAUSES Bronchitis may be caused by: Viral infections. Bacteria. Cigarette smoke. Allergens, pollutants, and other irritants. SIGNS AND SYMPTOMS The most common symptom of bronchitis is a frequent cough that produces mucus. Other symptoms include: Fever. Body aches. Chest congestion. Chills. Shortness of breath. Sore throat. DIAGNOSIS Bronchitis is usually diagnosed through a medical history and physical exam. Tests, such as chest X-rays, are sometimes done to rule out other conditions. TREATMENT You may need to avoid contact with whatever caused the problem (smoking, for example). Medicines are sometimes needed. These may include: Antibiotics. These may be prescribed if the condition is caused by bacteria. Cough suppressants. These may be prescribed for relief of cough symptoms. Inhaled medicines. These may be prescribed to help open your airways and make it easier for you to breathe. Steroid medicines. These may be prescribed for those with recurrent ( chronic) bronchitis. HOME CARE INSTRUCTIONS Get plenty of rest. Drink enough fluids to keep your urine clear or pale yellow (unless you have a medical condition that requires fluid restriction). Increasing fluids may help thin your secretions and will prevent dehydration. Only take [id number] or prescription medicines as directed by your health care provider. Only take antibiotics as directed. Make sure you finish them even if you start to feel better. Avoid secondhand smoke, irritating chemicals, and strong fumes. These will make bronchitis worse. If you are a smoker, quit smoking. Consider using nicotine gum or skin patches to help control withdrawal symptoms. Quitting smoking will help your lungs heal faster. Put a cool-mist humidifier in your bedroom at night to moisten the air. This may help loosen mucus. Change the water in the humidifier daily. You can also run the hot water in your shower and sit in the bathroom with the door closed for 510 minutes. Follow up with your health care provider as directed. Wash your hands frequently to avoid catching bronchitis again or spreading an infection to others. SEEK MEDICAL CARE IF: Your symptoms do not improve after 1 week of treatment. SEEK IMMEDIATE MEDICAL CARE IF: Your fever increases. You have chills. You have chest pain. You have worsening shortness of breath. You have bloody sputum. You faint. You have lightheadedness. You have a severe headache. You vomit repeatedly. MAKE SURE YOU: Understand these instructions. Will watch your condition. Will get help right away if you are not doing well or get worse. Document Released: 10/23/2006 Document Revised: 08/13/2014 Document Reviewed: ExitCare Patient Information 2015 [employer]. This information is not intended to replace advice given to you by your health care provider. Make sure you discuss any questions you have with your health care provider. No follow up information was provided. Extracted from: Title: Office Visit Note Author: Ahmet Aranda MD Date: 07/17/15 Assessment/Plan Acute bronchitis Z-pack and Phenergan VC with codeine. Fluids and rest. Ordered: Office Visit Level 3 Est 23352 Acute idiopathic gout of hand will get lab Ordered: Office Visit Level 3 Est 69918 Sedimentation Rate Uric Acid Acute sinusitis Ordered: Office Visit Level 3 Est 78302 Orders: azithromycin, 1 packets, Oral, Daily, as directed on package labeling , X 5 days, # 6 tabs, 0 Refill(s) promethazine/phenylephrine/codeine, 5 mL, Oral, q4hr, as needed for cough, # 120 mL, 0 Refill(s)
--- OUTSIDE RECORDS SUMMARY | 2017-02-13 14:16 | XMS REPORT | Referral Summary ---
Author Author [facility] Organization [facility] Address Unknown Phone Unavailable Care Team Providers Care Sprinkler Worker Name Role Phone Leida Aranda Primary Care Physician [phone] Encounter [facility] [id number] Date(s): 01/18/16 - 01/18/16 [facility], [address] [place] [phone] Discharge Diagnosis: Cellulitis Discharge Diagnosis: Hx of dermatitis Discharge Disposition: 01-Home or Self Care Attending Physician: Ahmet Aranda MD Admitting Physician: Ahmet Aranda MD Vital Signs Most recent to 1 oldest [Reference Range]: Blood Pressure 146/82 mmHg [90-140/60-90 mmHg] *HI* (01/18/16 10:20 AM) Problem List Condition Effective Dates Status [...] tabs, 1 Refill(s), Pharmacy: [facility] # [id number], 1 tabs Oral Daily Start Date: 11/11/15 [...] days, # 20 caps, 0 Refill(s), Pharmacy: [facility] #[id number], 1 caps Oral q12hr,x10 days Start Date: 01/14/16 Stop Date: 01/24/16 Status: Ordered Co-Q10 Oral, 0 Refill(s) Start Date: 12/29/15 Status: Ordered Colcrys 0.6 mg oral tablet 1.2 mg 2 tabs, Oral, Daily, as needed for gout pain, 2 tabs at the first sign of a gout flare followed by 0.6 mg one hour later, # 30 tabs, 0 Refill(s), Pharmacy: [id number] Start Date: 06/26/15 Stop Date: 06/26/15 Status: Ordered Glucometer strips (DME) DME Item Contour Test Strips. Test blood sugars daily as directed by physician. , See Instructions, 0 Refill(s), Supply Start Date: 10/07/14 Status: Ordered Klor-Con M10 oral tablet, extended release 10 mEq 1 tabs, Oral, Daily, # 90 tabs, 1 Refill(s), Pharmacy: [facility] # [id number], 1 tabs Oral Daily,x90 days Start Date: 12/24/15 Stop Date: 03/23/16 Status: Ordered Lasix 40 mg oral tablet 40 mg 1 tabs, Oral, BID, # 90 tabs, 1 Refill(s), Pharmacy: [facility] # [id number], 1 tabs Oral Daily Start Date: 11/03/15 [...] DAILY, # 90 tabs, 3 Refill(s), eRx: [facility], TAKE 1 TABLET DAILY Start Date: 03/09/15 Status: Ordered Plavix 75 mg oral tablet 75 mg 1 tabs, Oral, Daily, # 30 tabs, 3 Refill(s), Pharmacy: [facility] # [id number], 1 tabs Oral Daily Start Date: 11/30/15 Status: Ordered venlafaxine 150 mg oral tablet, extended release See Instructions, TAKE 1 TABLET(=150MG)EVERY DAY IN THE MORNING AT THE SAME TIME EACH DAY WITH FOOD, # 90 tabs, 1 Refill(s), eRx: [facility], TAKE 1 TABLET(=150MG)EVERY DAY [...] Patient Education Author: Ahmet Aranda MD Date: Home Health Care Cellulitis Cellulitis is an infection of the skin and the tissue under the skin. The infected area is usually red and tender. This happens most often in the arms and lower legs. HOME CARE Take your antibiotic medicine as told. Finish the medicine even if you start to feel better. Keep the infected arm or leg raised (elevated). Put a warm cloth on the area up to 4 times per day. Only take medicines as told by your doctor. Keep all doctor visits as told. GET HELP IF: You see red streaks on the skin coming from the infected area. Your red area gets bigger or turns a dark color. Your bone or joint under the infected area is painful after the skin heals. Your infection comes back in the same area or different area. You have a puffy (swollen) bump in the infected area. You have new symptoms. You have a fever. GET HELP RIGHT AWAY IF: You feel very sleepy. You throw up (vomit) or have watery poop (diarrhea). You feel sick and have muscle aches and pains. MAKE SURE YOU: Understand these instructions. Will watch your condition. Will get help right away if you are not doing well or get worse. This information is not intended to replace advice given to you by your health care provider. Make sure you discuss any questions you have with your health care provider. Document Released: 04/10/2009 Document Revised: 03/09/2015 Document Reviewed: ExitCare Patient Information 2015 [employer]. No follow up information was provided. Extracted from: Title: Office Visit Note Author: Ahmet Aranda MD Date: 01/18/16 Assessment/Plan Cellulitis, Cellulitis of left lower limb continue with the present treatment and follow up as needed Ordered: Office Visit Level 3 Est 09878 Hx of dermatitis, Personal history of diseases of the skin and subcutaneous tissue Ordered: Office Visit Level 3 Est 71568
--- OUTSIDE RECORDS SUMMARY | 2017-02-13 14:16 | XMS REPORT | Referral Summary ---
Author Author [facility] Organization [facility] Address Unknown Phone Unavailable Care Team Providers Care Top Trimmer Name Role Phone Leida Aranda Primary Care Physician [phone] Encounter [facility] [id number] Date(s): 07/26/16 - 07/26/16 [facility] [address] [place] [id number] Discharge Diagnosis: Diabetes Discharge Diagnosis: Eustachian tube disorder Discharge Disposition: 01-Home or Self Care Attending Physician: Ahmet Aranda MD Admitting Physician: Ahmet Aranda MD Vital Signs Most recent to 1 oldest [Reference Range]: Blood Pressure 130/70 mmHg [90-140/60-90 mmHg] (07/26/16 10:57 AM) Problem List Condition Effective Dates Status [...] tabs, 1 Refill(s), Pharmacy: [facility] # [id number], 1 tabs Oral Daily Start Date: 11/11/15 Status: Ordered Ambien 10 mg oral tablet 10 mg 1 tabs, Oral, Bedtime (once a day), MUST LAST 90 DAYS Robbie Howard, # 90 Each, 0 Refill(s) Start Date: 06/28/16 Status: Ordered aspirin 325 mg, Oral, BID, 0 Refill(s) Start Date: 05/05/16 Status: Ordered atorvastatin 20 mg oral tablet 20 mg 1 tabs, Oral, Daily, Dr. Rich, # 30 tabs, 0 Refill(s) Start Date: 12/29/15 Status: Ordered carvedilol 12.5 mg oral tablet 12.5 mg 1 tabs, Oral, BID, # 60 tabs, 0 Refill(s), Pharmacy: [facility] # [id number], 1 tabs Oral BID Start Date: 04/22/16 Status: Ordered clopidogrel 75 mg oral tablet See Instructions, TAKE ONE TABLET BY MOUTH DAILY, # 30 tabs, 1 Refill(s), eRx: [facility] #[id number], TAKE ONE TABLET BY MOUTH DAILY Start Date: 07/14/16 Status: Ordered Co-Q10 Oral, 0 Refill(s) Start Date: 12/29/15 Status: Ordered Colcrys 0.6 mg oral tablet 1.2 mg 2 tabs, Oral, Daily, as needed for gout pain, 2 tabs at the first sign of a gout flare followed by 0.6 mg one hour later, # 30 tabs, 0 Refill(s), Pharmacy: [id number] Start Date: 06/26/15 Stop Date: 06/26/15 Status: Ordered Glucometer strips (DME) DME Item Contour Test Strips. Test blood sugars daily as directed by physician. , See Instructions, 0 Refill(s), Supply Start Date: 10/07/14 Status: Ordered Klor-Con M10 oral tablet, extended release See Instructions, TAKE ONE TABLET BY MOUTH DAILY, # 90 tabs, eRx: [facility] #[id number], TAKE ONE TABLET BY MOUTH DAILY Start Date: 06/13/16 Status: Ordered Lasix 80 mg oral tablet 80 mg 1 tabs, Oral, Daily, # 90 tabs, 3 Refill(s), Pharmacy: [facility] # [id number], 1 tabs Oral Daily Start Date: 04/22/16 Status: Ordered MiraLax 17 g, Oral, Daily, 0 Refill(s) Start Date: 01/08/16 Status: Ordered nitroglycerin 0.4 mg sublingual spray 1 sprays, SubLingual, as needed for chest pain, may repeat 2 times with about 5 min between them, 0 Refill(s) Start Date: 10/07/14 Status: Ordered pantoprazole 40 mg oral delayed release tablet See Instructions, TAKE 1 TABLET DAILY, # 90 tabs, 3 Refill(s), Pharmacy: [facility] #[id number], TAKE 1 TABLET DAILY Start Date: 07/19/16 Status: Ordered traMADol 1-2 tabs, Oral, q4hr, as needed for pain, 0 Refill(s) Start Date: 05/05/16 Status: Ordered venlafaxine 150 mg oral tablet, extended release See Instructions, TAKE 1 TABLET(=150MG)EVERY DAY IN THE MORNING AT THE SAME TIME EACH DAY WITH FOOD, # 90 tabs, 1 Refill(s), Pharmacy: [facility] # [id number], TAKE 1 TABLET(=150MG)EVERY DAY IN THE MORNING AT THE SAME TIME EACH DAY WITH FOOD Start Date: 06/13/16 Status: Ordered Results No data available for [...] Author: Ahmet Aranda MD Date: Family Medicine How to Avoid Diabetes Problems You can do a lot to prevent or slow down diabetes problems. Following your diabetes plan and taking care of yourself can reduce your risk of serious or life-threatening complications. Below, you will find certain things you can do to prevent diabetes problems. MANAGE YOUR DIABETES Follow your health care provider's, nurse educator's, and dietitian's instructions for managing your diabetes. They will teach you the basics of diabetes care. They can help answer questions you may have. Learn about diabetes and make healthy choices regarding eating and physical activity. Monitor your blood glucose level regularly. Your health care provider will help you decide how often to check your blood glucose level depending on your treatment goals and how well you are meeting them. DO NOT USE NICOTINE Nicotine and diabetes are a dangerous combination. Nicotine raises your risk for diabetes problems. If you quit using nicotine, you will lower your risk for heart attack, stroke, nerve disease, and kidney disease. Your cholesterol and your blood pressure levels may improve. Your blood circulation will also improve. Do not use any tobacco products, including cigarettes, chewing tobacco , or electronic cigarettes. If you need help quitting, ask your health care provider. KEEP YOUR BLOOD PRESSURE UNDER CONTROL Your health care provider will determine your individualized target blood pressure based on your age, your medicines, how long you have had diabetes, and any other medical conditions you have. Blood pressure consists of two numbers. Generally, the goal is to keep your top number (systolic pressure) at or below 130, and your bottom number (diastolic pressure) at or below 80. Your health care provider may recommend a lower target blood pressure reading, if appropriate. Meal planning, medicines, and exercise can help you reach your target blood pressure. Make sure your health care provider checks your blood pressure at every visit. KEEP YOUR CHOLESTEROL UNDER CONTROL Normal cholesterol levels will help prevent heart disease and stroke. These are the biggest health problems for people with diabetes. Keeping cholesterol levels under control can also help with blood flow. Have your cholesterol level checked at least once a year. Your health care provider may prescribe a medicine known as a statin. Statins lower your cholesterol. If you are not taking a statin, ask your health care provider if you should be. Meal planning, exercise, and medicines can help you reach your cholesterol targets. SCHEDULE AND KEEP YOUR ANNUAL PHYSICAL EXAMS AND EYE EXAMS Your health care provider will tell you how often he or she wants to see you depending on your plan of treatment. It is important that you keep these appointments so that possible problems can be identified early and complications can be avoided or treated. Every visit with your health care provider should include your weight, blood pressure, and an evaluation of your blood glucose control. Your hemoglobin A1c should be checked: At least twice a year if you are at your goal. Every 3 months if there are changes in treatment. If you are not meeting your goals. Your blood lipids should be checked yearly. You should also be checked yearly to see if you have protein in your urine (microalbumin). Schedule a dilated eye exam within 5 years of your diagnosis if you have type 1 diabetes, and then yearly. Schedule a dilated eye exam at diagnosis if you have type 2 diabetes, and then yearly. All exams thereafter can be extended to every 2 to 3 years if one or more exams have been normal. KEEP YOUR VACCINES CURRENT It is recommended that you receive a flu (influenza) vaccine every year. It is also recommended that you receive a pneumonia (pneumococcal) vaccine. If you are 65 years of age or older and have never received a pneumonia vaccine, this vaccine may be given as a series of two separate shots. Ask your health care provider which additional vaccines may be recommended. TAKE CARE OF YOUR FEET Diabetes may cause you to have a poor blood supply (circulation) to your legs and feet. Because of this, the skin may be thinner, break easier, and heal more slowly. You also may have nerve damage in your legs and feet, causing decreased feeling. You may not notice [...] of sensation. You should also do the following: Inspect your feet daily for cuts, calluses, [...] left untreated, can lead to tooth loss. [place] your teeth twice a day, floss, and see your dentist for checkups and cleaning every 6 months, or 2 times a year. ASK YOUR HEALTH CARE PROVIDER ABOUT TAKING ASPIRIN Taking aspirin daily is recommended to help prevent cardiovascular disease in people with and without diabetes. Ask your health care provider if this would benefit you and what [...] to be helping, get help from your health care provider or a trained mental health professional. This information is not intended to replace advice given to you by your health care provider. Make sure you discuss any questions you have with your health care provider. Document Released: 07/10/2012 Document Revised: 11/13/2015 Document Reviewed: ExitCare Patient Information 2016 Style for [facility], [facility]. No follow up information was provided. Extracted from: Title: Office Visit Note Author: Ahmet Aranda MD Date: 07/26/16 Assessment/Plan 1.Eustachian tube disorder Rx for Afrin 2 puff bid for 5 days. Rhinocort nasal spray 2 puffs at hs. If not improved, then a ENT consult. Ordered: Office Visit Level 3 Est 40673 Diabetes He is due for a HgA1C. Follow up in 3 months. Ordered: Hemoglobin A1c Office Visit Level 3 Est 53552
--- OUTSIDE RECORDS SUMMARY | 2017-02-13 14:16 | XMS REPORT | Continuity of Care Document ---
Author Author [facility] Organization [facility] Address Unknown Phone Unavailable Support Name Relationship Address Phone SVETLANA VILLALOBOS MD Caregiver [address] [place] [address] Unavailable SVETLANA VILLALOBOS MD Caregiver [address] [place] [address] Unavailable LIBIA MARCOS MD Caregiver [address] [place] [address] [place] [address] Unavailable RUDOLPH HERNANDES Next Of Kin [address] [place] [address] Insurance Providers Guarantor Brianna Hernandes Address [address] [place] [address] Email [email or web address] Payer Medicare Policy Number [id number] Subscriber's Name Brianna Hernandes Relationship 18 Self Payer Other A Insurance Policy Number [id number] Subscriber's Name Brianna Hernandes Relationship 18 Self Group Number [id number] Advance Directives Directive Response Recorded Date/Time Ordered Resuscitation Status Full Code 04/29/16 12:01pm Resuscitation Documents on File N DONE AT [facility] 05/04/16 10:23am DPOA for Healthcare Only Yes 05/04/16 10:23am Problems Active Problems Medical Problem Onset Date Status Anxiety Unknown Coronary artery disease Unknown DMII (diabetes mellitus, type 2) Unknown Degenerative arthritis of right knee Unknown Chronic Depression Unknown Hyperlipemia Unknown Hypertension Unknown MATT (obstructive sleep apnea) Unknown Obesity, morbid, BMI 40.0-49.9 Unknown Surgical Problem Onset Date Status S/P CABG (coronary artery bypass graft) Unknown Past Problems Medical Problem Onset Date Degenerative arthritis of left knee Unknown Medications Current Home Medications Medication Dose Units Route Directions Days Qty Instructions Start Date Acetaminophen (Tylenol) 325 Mg Tablet 650 Mg Oral Four Times Daily 100 Tablet 05/04/16 Allopurinol 300 Mg Tablet 1 Tab Oral Daily 12/17/15 Aspirin (Aspirin Ec) 325 Mg Tablet. 325 Mg Oral Twice A Day 84 Tablet 05/04/16 Atorvastatin Calcium 20 Mg Tablet 1 Tab Oral Daily 12/17/15 Carvedilol (Coreg) 25 Mg Tablet 1 Tab Oral Twice Daily With Meals BEST WITH FOOD. 04/11/16 Clopidogrel Bisulfate (Plavix) 75 Mg Tablet 1 Tab Oral Every Evening 02/08/10 Colchicine 0.6 Mg Tablet 2 Tab Oral Daily 2 TABS AT THE FIRST SIGN OF A GOUT FLARE FOLLOWED BY 0.6 MG ONE HOUR LATER. 12/17/15 Furosemide (Lasix) 40 Mg Tablet 2 Tab Oral Daily 09/21/10 Naproxen Sodium (Aleve) 220 Mg Tablet 440 Mg Oral Bedtime as needed for Pain 04/11/16 Nitroglycerin (Nitrolingual) 12 Gm [place] as needed for Chest Pain 02/08/10 Pantoprazole Sodium 40 Mg Tablet.dr 40 Mg Oral Before Breakfast Take 1 tablet, by mouth, daily before breakfast. 12/17/15 Polyethylene Glycol 3350 (Healthylax) 17 Gm Powd.pack 17 Gm Oral Daily 30 Packet 05/04/16 Potassium Chloride (Klor-Con 10) 10 Meq Tablet.sa 10 Meq Oral Daily 09/21/10 Tramadol Hcl (Ultram) 50 Mg Tablet 50-100 Mg Oral Every 4 Hours as needed for Pain 60 Tablet 05/04/16 Ubidecarenone (Coq-10) 100 Mg Capsule 1 Cap Oral Daily 12/17/15 Venlafaxine Hcl (Venlafaxine Hcl Er) 150 Mg Tab.er.24 1 Tab Oral Every Evening 12/17/15 Zolpidem Tartrate (Ambien) 10 Mg Tablet 10 Mg Oral Qhs 02/08/10 Past Home Medications Medication Directions Ordered Status Atenolol 25 Mg Tablet, 25 Mg Oral 02/08/10 Discontinued Isosorbide Dinitrate 30 Mg Tablet, 30 Mg Oral Twice A Day 02/08/10 Discontinued [place]-3 Fatty Acids (Fish Oil) 500 Mg Capsule, 02/08/10 Discontinued Omeprazole (Prilosec) 20 Mg Capsule., 02/08/10 Discontinued Paroxetine Hcl 20 Mg Tablet, 20 Mg Oral 02/08/10 Discontinued Ropinirole Hcl (Requip) 3 Mg Tablet, 3 Mg Oral 02/08/10 Discontinued Spironolactone 25 Mg Tablet, 25 Mg Oral 02/08/10 Discontinued Social History Social History Problem Response Recorded Date/Time Onset Date Status Chewing Tobacco Status N QUIT ABOUT 2 YEARS AGO 05/03/2016 8:20am Not Applicable Not Applicable Hx Substance Use No 05/03/2016 8:20am Not Applicable Not Applicable Hx Alcohol Use Y Used to have 1-3 drinks a month 05/03/2016 9:29am Not Applicable Not Applicable Has the pt used tobacco in the last 12 months No 05/03/2016 8:20am Not Applicable Not Applicable Query Response Start Date Stop Date Smoking Status Former smoker Hospital Discharge Instructions Instructions: Care Instructions: Reason for Hospitalization: Right Total Knee Arthroscopy I was in the hospital because (patient own words): "TO REPLACE MY RIGHT KNEE" Discharge Diet: 2000 dudley ADA Discharge Activity: Weight bearing as tolerated Follow Up Appointments: Follow up with DR VILLALOBOS on 05-30-16 @ 9:45AM. CHANDANA ON 05/06/2016 AT 10:00AM FOR PHYSICAL THERAPY EVAL. COMPLETE THE PAPERWORK IN THE [employer] FOLDER PRIOR TO THE APPOINTMENT. PHONE [phone] Pending Lab / Results: No Pending Lab Patient Instructions: See [facility] Postop Instructions Condition at time of discharge: Good Plan of Care Discharge Date 05/04/16 3:02pm Disposition 01 DISCHARGED HOME, SELF-CARE Instructions/Education Provided [facility] Postop Instructions Prescriptions See Medication Section Care Plan and Goals See Discharge Instructions Section Functional Status Query Response Date Recorded Mobility Status Ambulatory May 04, 2016 2:15pm Assistive Devices Cane May 04, 2016 2:15pm Activity Limitations Pain May 04, 2016 2:15pm Feeding Ability Independent May 04, 2016 2:15pm Toileting Ability Independent May 04, 2016 2:15pm Grooming Ability Independent May 04, 2016 2:15pm Dressing Ability Independent May 04, 2016 2:15pm Driving Ability Independent May 04, 2016 2:15pm Housework Ability Independent May 04, 2016 2:15pm Meal Preparation Ability Independent May 04, 2016 2:15pm Stair Climbing Ability Independent May 04, 2016 2:15pm Ability to complete ADL's impeded by No change May 04, 2016 2:15pm Cognitive/Perceptual Impairments Impaired vision May 04, 2016 2:15pm Allergies, Adverse Reactions, Alerts Allergen Type Severity Reaction Status Last Updated Fiqxkim-Tiz-Vxd Reductase Inhibitor Adverse Reaction Unknown SOME CAUSE RLS Active 12/30/15 Immunizations Query Response on File Recorded Date/Time Hx Influenza Vaccination Y 201205/03/16 8:20am Hx Pneumococcal Vaccination Y UNSURE OF DATE-DECLINES NOW DUE TO LOCALIZED SWELLING 05/03/16 8:20am Hx Influenza Vaccination Y 201205/03/16 8:20am Vital Signs Acute Vital Signs Vital Response Date/Time Temperature (Fahrenheit) 96.7 deg F (96.8 - 99.1) 05/04/2016 7:49am Temperature (Calculated Celsius) 35.95943 degrees C (36.0 - 37.3) 05/04/2016 7:49am Temperature Source Oral 05/04/2016 7:49am Pulse Rate (adult) 82 bpm (60 - 100) 05/04/2016 7:49am Respiratory Rate 16 breaths/min (10 - 20) 05/04/2016 8:14am O2 Sat by Pulse Oximetry 91 % (90 - 100) 05/04/2016 1:00pm Oxygen Delivery Method Nasal Cannula 05/04/2016 1:00pm Oxygen Delivery Method Nasal Cannula 05/03/2016 12:25pm Oxygen Flow Rate 0.50 L/min 05/04/2016 1:00pm Blood Pressure 133/74 mm Hg 05/04/2016 7:49am Blood Pressure Source Automatic Cuff 05/04/2016 7:49am Height (Feet) 5 feet 05/04/2016 7:57am Height (Inches) 4.00 inches 05/04/2016 7:57am Weight (Kilograms) 113.600 kg 05/04/2016 7:49am Body Mass Index (BMI) 41.5 05/03/2016 8:45am Results Laboratory Results Test Name Result Units Flags Reference Collection Date/Time Result Date/ Time Comments White Blood Count 9.7 T/MM3 4.5-11.0 05/04/2016 4:09am 05/04/2016 4: 54am Red Blood Count 3.98 M/MM3 L 4.50-5.90 05/04/2016 4:09am 05/04/2016 4: 54am Hemoglobin 12.0 GM/DL L 13.5-17.5 05/04/2016 4:09am 05/04/2016 4:54am Hematocrit 37.7 % L 41-53 05/04/2016 4:09am 05/04/2016 4:54am Mean Corpuscular Volume 94.7 UM3 80-100 05/04/2016 4:09am 05/04/2016 4: 54am Mean Corpuscular Hemoglobin 30.2 UUG 26-34 05/04/2016 4:2015 4:54am Mean Corpuscular Hemoglobin Concent 31.8 GM/DL 31-37 05/04/2016 4:05/04/2016 4:54am RDW Standard Deviation 45.5 FL 36.9-50.2 05/04/2016 4:05/04/2016 4 :54am Platelet Count 233 T/MM3 130-400 05/04/2016 4:05/04/2016 4:54am Mean Platelet Volume 9.0 UM3 L 9.4-12.4 05/04/2016 4:05/04/2016 4: 54am Icterus Index < 2 0-7 05/04/2016 4:05/04/2016 5:07am Chemistry Specimen Hemolysis < 15 0-25 05/04/2016 4:05/04/2016 5 :07am 0-25: Specimen Exhibited No Hemolysis. Turbidity < 20 0-20 05/04/2016 4:05/04/2016 5:07am Sodium Level 137 MEQ/L 134-144 05/04/2016 4:05/04/2016 5:07am Potassium Level 4.3 MEQ/L 3.6-5 05/04/2016 4:05/04/2016 5:07am Chloride Level 104 MEQ/L 98-107 05/04/2016 4:05/04/2016 5:07am Carbon Dioxide Level 26 MEQ/L 22-30 05/04/2016 4:05/04/2016 5: 07am Anion Gap 7 MEQ/L 5-15 05/04/2016 4:05/04/2016 5:07am Blood Urea Nitrogen 20.0 MG/DL 9-05/04/2016 4:05/04/2016 5: 07am Creatinine 0.7 MG/DL L 0.8-1.5 05/04/2016 4:05/04/2016 5:07am BUN/Creatinine Ratio 29 RATIO H 6-05/04/2016 4:05/04/2016 5: 07am Glomerular Filtration Rate Calc 113 05/04/2016 4:05/04/2016 5: 07am Glucose Level 103 MG/DL 75-110 05/04/2016 4:09am 05/04/2016 5:07am Calculated Osmolality 267 MOSM/KG 261-280 05/04/2016 4:09am 05/04/2016 5:07am Calcium Level 8.2 MG/DL D L 8.4-10.2 05/04/2016 4:09am 05/04/2016 5:27am Glucometer 156 mg/dL H 75-110 05/04/2016 2:14pm 05/04/2016 2:16pm Name: BRIANNA HERNANDES Unit #: [id number] : [id number] Sex: M Admit Date: 05/03/16 Loc / Svc: SRG Discharge Date: DIAGNOSTIC IMAGING REPORT Report #: [id number] [place], [place] Indication: ITS.REASON: POSTOP right knee replacement PROCEDURE: KNEE RIGHT 2 VIEW: Encounter: Initial Comparison: None Findings: Postoperative changes of right total knee replacement are seen. There is expected postoperative subcutaneous gas. No evidence of hardware failure or acute fracture. No retained radiopaque surgical instruments or sponges. Overlying material causing artifact. Vascular surgical clips in the medial soft tissues. Impression: New right total knee prosthesis without evidence of immediate complication. . Procedures Procedure Status Date Provider(s) Total replacement of right knee joint Completed 05/03/16 SVETLANA VILLALOBOS MD Encounters Encounter Location Arrival/Admit Date Discharge/Depart Date Attending Provider Discharged Inpatient [facility] 05/03/16 7:23am 05/04/16 3:02pm SVETLANA VILLALOBOS MD Registered Clinic [facility] 04/28/16 10:16am SVETLANA VILLALOBOS MD
--- OUTSIDE RECORDS SUMMARY | 2017-02-13 14:17 | XMS REPORT | Referral Summary ---
Author Author [facility] Organization [facility] Address Unknown Phone Unavailable Care Team Providers Care Senior Business Manager Name Role Phone Leida Aranda Primary Care Physician [phone] Encounter [facility] [phone] Date(s): 11/11/15 - 11/11/15 [facility] [address] [place] [phone] Discharge Disposition: 01-Home or Self Care Attending Physician: Ahmet Aranda MD Admitting Physician: Ahmet Aranda MD Vital Signs Most recent to 1 oldest [Reference Range]: Peripheral Pulse 91 bpm Rate [60-100 bpm] (11/11/15 9:45 AM) Blood Pressure 148/76 mmHg [90-140/60-90 mmHg] *HI* (11/11/15 9:45 AM) SpO2 93 % (11/11/15 9:45 AM) Problem List Condition Effective Dates Status [...] Reactions, Alerts No Known Medication Allergies Medications allopurinol 300 mg oral tablet 300 mg 1 tabs, Oral, Daily, # 90 tabs, 1 Refill(s), Pharmacy: [facility] # [id number], 1 tabs Oral Daily Start Date: 11/11/15 Status: Ordered Ambien 10 mg oral tablet 10 mg 1 tabs, Oral, Bedtime (once a day), MUST LAST 90 DAYS [facility] /DR. DOMINGUEZ FOR DR. ARANDA, # 90 Each, 0 Refill(s) Start Date: 10/29/15 Status: Ordered aspirin 81 mg oral tablet, disintegrating 1 tabs, Oral, Daily, 0 Refill(s) Start Date: 10/07/14 Status: Ordered carvedilol 12.5 mg oral tablet 12.5 mg 1 tabs, Oral, BID, # 180 tabs, 0 Refill(s) Start Date: 11/11/15 Status: Ordered Colcrys 0.6 mg oral tablet 1.2 mg 2 tabs, Oral, Daily, as needed for gout pain, 2 tabs at the first sign of a gout flare followed by 0.6 mg one hour later, # 30 tabs, 0 Refill(s), Pharmacy: [id number] Start Date: 06/26/15 Stop Date: 06/26/15 Status: Ordered gemfibrozil 600 mg oral tablet 600 mg 1 tabs, Oral, BID, # 60 tabs, 0 Refill(s), Pharmacy: [facility] # [id number], 1 tabs Oral BID Start Date: 10/29/15 Status: Ordered Glucometer strips (DME) DME Item Contour Test Strips. Test blood sugars daily as directed by physician. , See Instructions, 0 Refill(s), Supply Start Date: 10/07/14 Status: Ordered Klor-Con 10 oral tablet, extended release 10 mEq 1 tabs, Oral, Daily, APPOINTMENT NEEDED PRIOR TO ADDITIONAL REFILLS., # 30 tabs, 0 Refill(s), Pharmacy: [facility] #[id number], 1 tabs Oral Daily, Instr:APPOINTMENT NEEDED PRIOR TO ADDITIONAL REFILLS. Start Date: 10/29/15 Status: Ordered Lasix 40 mg oral tablet 40 mg 1 tabs, Oral, BID, # 90 tabs, 1 Refill(s), Pharmacy: [facility] # [id number], 1 tabs Oral Daily Start Date: 11/03/15 Status: Ordered Mucinex Max Strength 1,200 mg, Oral, q12hr, as needed, 0 Refill(s) Start Date: 07/17/15 Status: Ordered nitroglycerin 0.4 mg sublingual spray 1 sprays, SubLingual, as needed for chest pain, may repeat 2 times with about 5 min between them, 0 Refill(s) Start Date: 10/07/14 Status: Ordered pantoprazole 40 mg oral delayed release tablet See Instructions, TAKE 1 TABLET DAILY, # 90 tabs, 3 Refill(s), eRx: [facility], TAKE 1 TABLET DAILY Start Date: 03/09/15 Status: Ordered Plavix 75 mg oral tablet 75 mg 1 tabs, Oral, Daily, # 30 tabs, 0 Refill(s), Pharmacy: [facility] # [id number], 1 tabs Oral Daily Start Date: 10/29/15 Status: Ordered venlafaxine 150 mg oral tablet, extended release See Instructions, TAKE 1 TABLET(=150MG)EVERY DAY IN THE MORNING AT THE SAME TIME EACH DAY WITH FOOD, # 90 tabs, 1 Refill(s), eRx: [facility], TAKE 1 TABLET(=150MG)EVERY DAY IN THE MORNING AT THE SAME TIME EACH DAY WITH FOOD Start Date: 04/28/15 Status: Ordered Results Hematology Most recent to 1 oldest [Reference Range]: WBC [4.8-10.8 5.1 10*3/uL 10*3/uL] (11/11/15 10:44 AM) RBC [4.60-6.20] 4.78 (11/11/15 10:44 AM) Hgb [14.0-18.0 14.5 gm/dL gm/dL] (11/11/15 10:44 AM) Hct [42.0-52.0 %] 43.2 % (11/11/15 10:44 AM) MCV [82.0-99.0 fL] 90.4 fL (11/11/15 10:44 AM) MCH [27.0-32.0 pg] 30.3 pg (11/11/15 10:44 AM) MCHC [32.0-36.0 33.6 gm/dL gm/dL] (11/11/15 10:44 AM) RDW [11.5-14.5 %] 13.2 % (11/11/15 10:44 AM) Platelet [150-400 409 10*3/uL 10*3/uL] *HI* (11/11/15 10:44 AM) MPV [8.8-14.8 fL] 9.2 fL (11/11/15 10:44 AM) Immature 0.4 % Granulocytes (11/11/15 10:44 AM) [0.0-1.0 %] Neutrophils [51-75 47 % %] *LOW* (11/11/15 10:44 AM) Lymphocytes [20-46 40 % %] (11/11/15 10:44 AM) Monocytes [4-11 %] 10 % (11/11/15 10:44 AM) Eosinophils [0-4 %] 2 % (11/11/15 10:44 AM) Basophils [0-2 %] 0 % (11/11/15 10:44 AM) Neutro Absolute 2.39 10*3 [1.90-7.00 10*3] (11/11/15 10:44 AM) Lymph Absolute 2.06 10*3 [0.80-3.30 10*3] (11/11/15 10:44 AM) [place] Absolute 0.49 10*3 [0.30-1.00 10*3] (11/11/15 10:44 AM) Eos Absolute 0.12 10*3 [0.00-0.50 10*3] (11/11/15 10:44 AM) Baso Absolute 0.02 10*3 [0.00-0.20 10*3] (11/11/15 10:44 AM) Chemistry Most recent to 1 oldest [Reference Range]: Sodium Lvl [135-144 138 mEq/L mEq/L] (11/11/15 10:44 AM) Potassium Lvl 4.5 mEq/L [3.5-5.2 mEq/L] (11/11/15 10:44 AM) Chloride [99-111 104 mEq/L mEq/L] (11/11/15 10:44 AM) CO2 [23-31 mEq/L] 24 mEq/L (11/11/15 10:44 AM) AGAP [3-20] 10 (11/11/15 10:44 AM) BUN [8-26 mg/dL] 18 mg/dL (11/11/15 10:44 AM) Glucose Lvl [70-99 195 mg/dL mg/dL] *HI* (11/11/15 10:44 AM) Creatinine Lvl 0.85 mg/dL [0.72-1.25 mg/dL] (11/11/15 10:44 AM) eGFR [>60 mL/min] >60 mL/min 1 (11/11/15 10:44 AM) Calcium Lvl 9.2 mg/dL [8.9-10.5 mg/dL] (11/11/15 10:44 AM) Albumin Lvl [3.4-4.8 4.1 gm/dL gm/dL] (11/11/15 10:44 AM) Total Protein 6.9 gm/dL [6.2-8.1 gm/dL] (11/11/15 10:44 AM) Globulin [1.8-4.0 2.8 gm/dL gm/dL] (11/11/15 10:44 AM) ALT [0-55 U/L] 41 U/L (11/11/15 10:44 AM) AST [5-34 U/L] 23 U/L (11/11/15 10:44 AM) Alk Phos [40-150 112 U/L U/L] (11/11/15 10:44 AM) Bili Total [0.2-1.2 0.4 mg/dL mg/dL] (11/11/15 10:44 AM) Chol [0-199 mg/dL] 224 mg/dL *HI* (11/11/15 10:44 AM) Trig [0-149 mg/dL] 205 mg/dL *HI* (11/11/15 10:44 AM) HDL [40-84 mg/dL] 41 mg/dL (11/11/15 10:44 AM) LDL [0-130 mg/dL] 142 mg/dL *HI* (11/11/15 10:44 AM) VLDL Cholesterol 41 mg/dL [0-28 mg/dL] *HI* (11/11/15 10:44 AM) Cardiac Risk 5.5 [0.0-5.7] (11/11/15 10:44 AM) Hgb A1c [4.1-5.6 %] 6.9 % *HI* (11/11/15 10:44 AM) eAvg Glucose 151.3 mg/dL (11/11/15 10:44 AM) 1Result Comment: Multiply eGFR results by 1.21 for race. Immunizations Vaccine Date Refusal Reason pneumococcal 23-polyvalent vaccine 10/24/07 Procedures Procedure Date Related Diagnosis Body Site Cysto, removal of RT DBL J stent [...] Patient Education Author: Ahmet Aranda MD Date: 11/11 Cardiovascular Cardiac Rehabilitation Cardiac rehabilitation is a medically supervised program that helps improve the health and well-being of people with heart problems. Cardiac rehabilitation includes exercise training, education, and counseling to help you get stronger and return to an active lifestyle. People who participate in cardiac rehabilitation programs get better faster and reduce future hospital stays. Cardiac rehabilitation programs can help when you have had the following conditions: Heart attack. Heart failure. Peripheral artery disease. Coronary artery disease. Angina. Lung or breathing problems. Cardiac rehabilitation programs are also used when you have the following procedures: Coronary artery bypass graft surgery. Heart valve replacement. Heart stent placement. Heart transplant. Aneurysm repair. CARDIAC REHABILITATION MAY HELP YOU: Reduce problems like chest pain and trouble breathing. Change risk factors that contribute to heart disease, such as: Smoking. High blood pressure. High cholesterol. Diabetes. Being out of shape or not active. Weighing more than 30% over your ideal weight. Diet. Improve your mental outlook so you feel: Less depressed or "blue." More hopeful. Better about yourself. More confident about taking care of yourself. Get support from health experts as well as other people with similar problems. Learn how to manage and understand your medicines. Teach your family about your condition and how to participate in your recovery. WHAT HAPPENS IN CARDIAC REHABILITATION? You will be assessed by a cardiac rehabilitation team. They will check your health history and do a physical exam. You may need blood tests, stress tests, and other evaluations. You may not start a cardiac rehabilitation program if: You develop angina with exercise or while at rest. You have severe heart failure that limits your activity. You have an abnormal heart rhythm at rest. You develop heart rhythm problems during exercise. You have high blood pressure that is not controlled. The cardiac rehabilitation team works with you to make a plan based on your health and goals. Everyone is unique, so each program is customized and your program may change as you progress. Members of a typical cardiac rehabilitation team may include such health professionals as: Doctors. Nurses. Dietitians. Psychologists. Exercise specialists. Physical and occupational therapists. A typical cardiac rehabilitation program is divided into phases. You advance from one phase to the next. Most cardiac rehabilitation sessions last for 60 minutes, 3 times a week. Phase One starts while you are still in the hospital. You may start by walking in your room and then in the [place]. You may start some simple exercises with a therapist. Health care team members will give you information and ask you many questions. You may not be able to remember details, so have a family member or an advocate with you to help keep track of information. Phase Two begins when you go home or to another facility. This phase may last 8 to 12 weeks. You will travel to a cardiac rehabilitation center or a place where it is offered. Typically, you gradually increase your activity while being closely watched by a nurse or therapist. Exercises may be a combination of strength or resistance training and "cardio" or aerobic movement on a treadmill or other machines. Your condition will determine how often and how long these sessions will last. In phase two, you may learn how to cook healthy meals, control your blood sugar , and manage your medicines. You may need help with scheduling or planning how and when to take your medicines. Use a timer, divided pill box, or follow a form to make taking your medicines easier. Use the method that works best for you. Some medicines should not be taken with certain foods. If you take more than one blood pressure medicine, you may need to stagger the times you take them. Taking all your blood pressure medicine at the same time may lower your blood pressure too much. If you have questions about your medicines, ask your health care provider questions until you understand. Phase Three continues for the rest of your life. There will be less supervision. You may still participate in cardiac rehabilitation activities or become part of a group in your community. You may benefit from talking to other people about your experience if they are facing similar challenges. How soon you drive, have sex, or return to work will depend on your condition. These decisions should be made by you and your health care provider. If you need help, ask for it. Find out where you can get the help you need. Ask questions until you get answers and understand. SEEK IMMEDIATE MEDICAL CARE IF: Get medical help at once if you experience any of the following symptoms: Severe chest discomfort, especially if the pain is crushing or pressure- like and spreads to the arms, back, neck, or jaw. Do not wait to see if the pain will go away. Weakness or numbness in your face, arms, or legs, especially on one side of the body; slurred speech; confusion; sudden severe headache or loss of vision (all symptoms of stroke). You have shortness of breath. You are sweating and feel sick to your stomach (nausea). You feel dizzy or faint. You experience profound tiredness (fatigue). Call your local emergency service (911 in the [place] Do not drive yourself to the hospital. Document Released: 08/01/2009 Document Revised: 03/09/2015 Document Reviewed: [employer] Patient Information 2015 [facility]. This information is not intended to replace advice given to you by your health care provider. Make sure you discuss any questions you have with your health care provider. No follow up information was provided. Extracted from: Title: Office Visit Note Author: Ahmet Aranda MD Date: 11/11/15 Assessment/Plan Acute gout continue with the current medications. CAD (coronary artery disease) of artery bypass graft Will get lab today and refer him to Dr. Rich Ordered: Lipid Panel Office Visit Level 4 Est 58437 Diabetes Work on weight and exercising. Ordered: Hemoglobin A1c Office Visit Level 4 Est 53199 Essential hypertension, benign Ordered: CBC w/ Differential Comprehensive Metabolic Panel Office Visit Level 4 Est 24156 Renal calculus Restless leg syndrome Ordered: Office Visit Level 4 Est 26591 Orders: allopurinol, 300 mg 1 tabs, Oral, Daily, # 90 tabs, 1 Refill(s), Pharmacy: [facility] #[id number], 1 tabs Oral Daily furosemide, 40 mg 1 tabs, Oral, BID, # 90 tabs, 1 Refill(s), Pharmacy: [facility] #[id number], 1 tabs Oral Daily
--- OUTSIDE RECORDS SUMMARY | 2017-02-13 14:17 | XMS REPORT | Referral Summary ---
Author Author [facility] Organization [facility] Address Unknown Phone Unavailable Care Team Providers Care Riveter Portable Machine Name Role Phone Manoj Leida Primary Care Physician [phone] Encounter [facility] [id number] Date(s): 12/29/15 - 12/29/15 [facility] [address] [place] [phone] Discharge Diagnosis: Apnea, sleep Discharge Diagnosis: Knee pain, left Discharge Diagnosis: Diabetes Discharge Diagnosis: CAD (coronary artery disease) of artery bypass graft Discharge Disposition: 01-Home or Self Care Attending Physician: Elvira Pacheco PA-C Admitting Physician: Elvira Pacheco PA-C Vital Signs Most recent to 1 oldest [Reference Range]: Peripheral Pulse 86 bpm Rate [60-100 bpm] (12/29/15 1:02 PM) Blood Pressure 124/82 mmHg [90-140/60-90 mmHg] (12/29/15 1:02 PM) SpO2 93 % (12/29/15 1:02 PM) Problem List Condition Effective Dates Status Health [...] # 90 tabs, 1 Refill(s), Pharmacy: [facility] # [id number], 1 tabs Oral Daily Start Date: 11/11/15 Status: Ordered Ambien 10 mg oral tablet 10 mg 1 tabs, Oral, Bedtime (once a day), MUST LAST 90 DAYS [facility] /DR. DOMINGUEZ FOR DR. MARCOS, # 90 Each, 0 Refill(s) Start Date: [...] later, # 30 tabs, 0 Refill(s), Pharmacy: [facility] [id number] Start Date: 06/26/15 Stop Date: 06/26/15 Status: Ordered Glucometer strips (DME) DME Item Contour Test Strips. Test blood sugars daily as directed by physician. , See Instructions, 0 Refill(s), Supply Start Date: 10/07/14 Status: Ordered Klor-Con M10 oral tablet, extended release 10 mEq 1 tabs, Oral, Daily, # 90 tabs, 1 Refill(s), Pharmacy: [facility] # [id number], 1 tabs Oral Daily,x90 days Start Date: 12/24/15 Stop Date: 03/23/16 Status: Ordered Lasix 40 mg oral tablet 40 mg 1 tabs, Oral, BID, # 90 tabs, 1 Refill(s), Pharmacy: [facility] # [id number], 1 tabs Oral Daily Start Date: 11/03/15 Status: Ordered nitroglycerin 0.4 mg sublingual spray 1 sprays, SubLingual, as needed for chest pain, may repeat 2 times with about 5 min between them, 0 Refill(s) Start Date: 10/07/14 Status: Ordered pantoprazole 40 mg oral delayed release tablet See Instructions, TAKE 1 TABLET DAILY, # 90 tabs, 3 Refill(s), eRx: [facility], TAKE 1 TABLET DAILY Start Date: 03/09/15 Status: Ordered Plavix 75 mg oral tablet 75 mg 1 tabs, Oral, Daily, # 30 tabs, 3 Refill(s), Pharmacy: [facility] # [id number], 1 tabs Oral Daily Start Date: 11/30/15 Status: Ordered venlafaxine 150 mg oral tablet, extended release See Instructions, TAKE 1 TABLET(=150MG)EVERY DAY IN THE MORNING AT THE SAME TIME EACH DAY WITH FOOD, # 90 tabs, 1 Refill(s), eRx: [facility], TAKE 1 TABLET(=150MG)EVERY DAY IN THE MORNING AT THE SAME TIME EACH DAY WITH FOOD Start Date: 04/28/15 Status: Ordered Results Hematology Most recent to 1 oldest [Reference Range]: WBC [4.8-10.8 7.5 10*3/uL 10*3/uL] (12/29/15 1:28 PM) RBC [4.60-6.20] 4.97 (12/29/15 1:28 PM) Hgb [14.0-18.0 15.2 gm/dL gm/dL] (12/29/15 1:28 PM) Hct [42.0-52.0 %] 45.1 % (12/29/15 1:28 PM) MCV [82.0-99.0 fL] 90.7 fL (12/29/15 1:28 PM) MCH [27.0-32.0 pg] 30.6 pg (12/29/15 1:28 PM) MCHC [32.0-36.0 33.7 gm/dL gm/dL] (12/29/15 1:28 PM) RDW [11.5-14.5 %] 13.0 % (12/29/15 1:28 PM) Platelet [150-400 355 10*3/uL 10*3/uL] (12/29/15 1:28 PM) MPV [8.8-14.8 fL] 9.0 fL (12/29/15 1:28 PM) Immature 0.1 % Granulocytes (12/29/15 1:28 PM) [0.0-1.0 %] Neutrophils [51-75 49 % %] *LOW* (12/29/15 1:28 PM) Lymphocytes [20-46 40 % %] (12/29/15 1:28 PM) Monocytes [4-11 %] 10 % (12/29/15 1:28 PM) Eosinophils [0-4 %] 2 % (12/29/15 1:28 PM) Basophils [0-2 %] 0 % (12/29/15 1:28 PM) Neutro Absolute 3.64 10*3 [1.90-7.00 10*3] (12/29/15 1:28 PM) Lymph Absolute 2.96 10*3 [0.80-3.30 10*3] (12/29/15 1:28 PM) [place] Absolute 0.73 10*3 [0.30-1.00 10*3] (12/29/15 1:28 PM) Eos Absolute 0.11 10*3 [0.00-0.50 10*3] (12/29/15 1:28 PM) Baso Absolute 0.02 10*3 [0.00-0.20 10*3] (12/29/15 1:28 PM) Coagulation Most recent to 1 oldest [Reference Range]: PT Venous (12/29/15 1:28 PM) INR [0.8-1.2] 1.0 1 (12/29/15 1:28 PM) 1Result Comment: Normal (no anticoagulant): 0.8 - 1.2 Units Routine Therapeutic Range: 2.0 - 3.0 Units High Risk Therapeutic Range: 2.5 - 3.5 Units Chemistry Most recent to 1 oldest [Reference Range]: Sodium Lvl [135-144 142 mEq/L mEq/L] (12/29/15 1:28 PM) Potassium Lvl 4.0 mEq/L [3.5-5.2 mEq/L] (12/29/15 1:28 PM) Chloride [99-111 102 mEq/L mEq/L] (12/29/15 1:28 PM) CO2 [23-31 mEq/L] 29 mEq/L (12/29/15 1:28 PM) AGAP [3-20] 11 (12/29/15 1:28 PM) BUN [8-26 mg/dL] 15 mg/dL (12/29/15 1:28 PM) Glucose Lvl [70-99 105 mg/dL mg/dL] *HI* (12/29/15 1:28 PM) Creatinine Lvl 0.87 mg/dL [0.72-1.25 mg/dL] (12/29/15 1:28 PM) eGFR [>60 mL/min] >60 mL/min 1 (12/29/15 1:28 PM) Calcium Lvl 9.3 mg/dL [8.9-10.5 mg/dL] (12/29/15 1:28 PM) Albumin Lvl [3.4-4.8 4.4 gm/dL gm/dL] (12/29/15 1:28 PM) Total Protein 7.2 gm/dL [6.2-8.1 gm/dL] (12/29/15 1:28 PM) Globulin [1.8-4.0 2.8 gm/dL gm/dL] (12/29/15 1:28 PM) ALT [0-55 U/L] 51 U/L (12/29/15 1:28 PM) AST [5-34 U/L] 27 U/L (12/29/15 1:28 PM) Alk Phos [40-150 161 U/L U/L] *HI* (12/29/15 1:28 PM) Bili Total [0.2-1.2 0.5 mg/dL mg/dL] (12/29/15 1:28 PM) 1Result Comment: Multiply eGFR results by 1.21 [...] Extracted from: Title: Ambulatory Patient Education Author: Elvira Pacheco PA-C Date : 12/29/15 Dentistry General Anesthesia General anesthesia is a sleep-like state of non-feeling produced by medicines ( anesthetics). General anesthesia prevents you from being alert and feeling pain during a medical procedure. Your caregiver may recommend general anesthesia if your procedure: Is long. Is painful or uncomfortable. Would be frightening to see or hear. Requires you to be still. Affects your breathing. Causes significant blood loss. LET YOUR CAREGIVER KNOW ABOUT: Allergies to food or medicine. Medicines taken, including vitamins, herbs, eyedrops, [id number] medicines, and creams. Use of steroids (by mouth or creams). Previous problems with anesthetics or numbing medicines, including problems experienced by relatives. History of bleeding problems or blood clots. Previous surgeries and types of anesthetics received. Possibility of , if this applies. Use of cigarettes, alcohol, or illegal drugs. Any health condition(s), especially diabetes, sleep apnea, and high blood pressure. RISKS AND COMPLICATIONS General anesthesia rarely causes complications. However, if complications do occur, they can be life threatening. Complications include: A lung infection. A stroke. A heart attack. Waking up during the procedure. When this occurs, the patient may be unable to move and communicate that he or she is awake. The patient may feel severe pain. Older adults and adults with serious medical problems are more likely to have complications than adults who are young and healthy. Some complications can be prevented by answering all of your caregiver's questions thoroughly and by following all pre-procedure instructions. It is important to tell your caregiver if any of the pre-procedure instructions, especially those related to diet, were not followed. Any food or liquid in the stomach can cause problems when you are under general anesthesia. BEFORE THE PROCEDURE Ask your caregiver if you will have to spend the night at the hospital. If you will not have to spend the night, arrange to have an adult drive you and stay with you for 24 hours. Follow your caregiver's instructions if you are taking dietary supplements or medicines. Your caregiver may tell you to stop taking them or to reduce your dosage. Do not smoke for as long as possible before your procedure. If possible, stop smoking 36 weeks before the procedure. Do not take new dietary supplements or medicines within 1 week of your procedure unless your caregiver approves them. Do not eat within 8 hours of your procedure or as directed by your caregiver. Drink only clear liquids, such as water, black coffee (without milk or cream), and fruit juices (without pulp). Do not drink within 3 hours of your procedure or as directed by your caregiver. You may brush your teeth on the morning of the procedure, but make sure to spit out the toothpaste and water when finished. PROCEDURE You will receive anesthetics through a mask, through an intravenous (IV) access tube, or through both. A doctor who specializes in anesthesia (anesthesiologist ) or a nurse who specializes in anesthesia (nurse neuropathologist) or both will stay with you throughout the procedure to make sure you remain unconscious. He or she will also watch your blood pressure, pulse, and oxygen levels to make sure that the anesthetics do not cause any problems. Once you are asleep, a breathing tube or mask may be used to help you breathe. AFTER THE PROCEDURE You will wake up after the procedure is complete. You may be in the room where the procedure was performed or in a recovery area. You may have a sore throat if a breathing tube was used. You may also feel: Dizzy. Weak. Drowsy. Confused. Nauseous. Cold. These are all normal responses and can be expected to last for up to 24 hours after the procedure is complete. A caregiver will tell you when you are ready to go home. This will usually be when you are fully awake and in stable condition. This information is not intended to replace advice given to you by your health care provider. Make sure you discuss any questions you have with your health care provider. Document Released: 01/29/2009 Document Revised: 03/09/2015 Document Reviewed: [facility] Patient Information 2015 [facility], [facility]. Family Medicine Knee Pain Knee pain is a very common symptom and can have many causes. Knee pain often goes away when you follow your health care provider's instructions for relieving pain and discomfort at home. However, knee pain can develop into a condition that needs treatment. Some conditions may include: Arthritis caused by wear and tear (osteoarthritis). Arthritis caused by swelling and irritation (rheumatoid arthritis or gout ). A cyst or growth in your knee. An infection in your knee joint. An injury that will not heal. Damage, swelling, or irritation of the tissues that support your knee ( torn ligaments or tendinitis). If your knee pain continues, additional tests may be ordered to diagnose your condition. Tests may include X-rays or other imaging studies of your knee. You may also need to have fluid removed from your knee. Treatment for ongoing knee pain depends on the cause, but treatment may include: Medicines to relieve pain or swelling. Steroid injections in your knee. Physical therapy. Surgery. HOME CARE INSTRUCTIONS Take medicines only as directed by your health care provider. Rest your knee and keep it raised (elevated) while you are resting. Do not do things that cause or worsen pain. Avoid high-impact activities or exercises, such as running, jumping rope , or doing jumping jacks. Apply ice to the knee area: Put ice in a plastic bag. Place a towel between your skin and the bag. Leave the ice on for 20 minutes, 23 times a day. Ask your health care provider if you should wear an elastic knee support. Keep a pillow under your knee when you sleep. Lose weight if you are overweight. Extra weight can put pressure on your knee. Do not use any tobacco products, including cigarettes, chewing tobacco, or electronic cigarettes. If you need help quitting, ask your health care provider. Smoking may slow the healing of any bone and joint problems that you may have. SEEK MEDICAL CARE IF: Your knee pain continues, changes, or gets worse. You have a fever along with knee pain. Your knee clara or locks up. Your knee becomes more swollen. SEEK IMMEDIATE MEDICAL CARE IF: Your knee joint feels hot to the touch. You have chest pain or trouble breathing. This information is not intended to replace advice given to you by your health care provider. Make sure you discuss any questions you have with your health care provider. Document Released: 08/19/2008 Document Revised: 08/11/2015 Document Reviewed: [facility] Patient Information 2015 [facility], [facility]. Ophthalmology Type 2 Diabetes Mellitus Type 2 diabetes mellitus, often simply referred to as type 2 diabetes, is a long -lasting (chronic) disease. In type 2 diabetes, the pancreas does not make enough insulin (a hormone), the cells are less responsive to the insulin that is made (insulin resistance), or both. Normally, insulin moves sugars from food into the tissue cells. The tissue cells use the sugars for energy. The lack of insulin or the lack of normal response to insulin causes excess sugars to build up in the blood instead of going into the tissue cells. As a result, high blood sugar (hyperglycemia) develops. The effect of high sugar (glucose) levels can cause many complications. Type 2 diabetes was also previously called adult-onset diabetes, but it can occur at any age. RISK FACTORS A person is predisposed to developing type 2 diabetes if someone in the family has the disease and also has one or more of the following primary risk factors: Weight gain, or being overweight or obese. An inactive lifestyle. A history of consistently eating high-calorie foods. Maintaining a normal weight and regular physical activity can reduce the chance of developing type 2 diabetes. SYMPTOMS A person with type 2 diabetes may not show symptoms initially. The symptoms of type 2 diabetes appear slowly. The symptoms include: Increased thirst (polydipsia). Increased urination (polyuria). Increased urination during the night (nocturia). Sudden or unexplained weight changes. Frequent, recurring infections. Tiredness (fatigue). Weakness. Vision changes, such as blurred vision. Fruity smell to your breath. Abdominal pain. Nausea or vomiting. Cuts or bruises which are slow to heal. Tingling or numbness in the hands or feet. DIAGNOSIS Type 2 diabetes is frequently not diagnosed until complications of diabetes are present. Type 2 diabetes is diagnosed when symptoms or complications are present and when blood glucose levels are increased. Your blood glucose level may be checked by one or more of the following blood tests: A fasting blood glucose test. You will not be allowed to eat for at least 8 hours before a blood sample is taken. A random blood glucose test. Your blood glucose is checked at any time of the day regardless of when you ate. A hemoglobin A1c blood glucose test. A hemoglobin A1c test provides information about blood glucose control over the previous 3 months. An oral glucose tolerance test (OGTT). Your blood glucose is measured after you have not eaten (fasted) for 2 hours and then after you drink a glucose -containing beverage. TREATMENT You may need to take insulin or diabetes medicine daily to keep blood glucose levels in the desired range. If you use insulin, you may need to adjust the dosage depending on the carbohydrates that you eat with each meal or snack. Lifestyle changes are recommended as part of your treatment. These may include: Following an individualized diet plan developed by a tie inspector or dietitian. Exercising daily. Your health care providers will set individualized treatment goals for you based on your age, your medicines, how long you have had diabetes, and any other medical conditions you have. Generally, the goal of treatment is to maintain the following blood glucose levels: Before meals (preprandial): 42285 mg/dL. After meals (postprandial): below 180 mg/dL. A1c: less than 6.57%. HOME CARE INSTRUCTIONS Have your hemoglobin A1c level checked twice a year. Perform daily blood glucose monitoring as directed by your health care provider. Monitor urine ketones when you are ill and as directed by your health care provider. Take your diabetes medicine or insulin as directed by your health care provider to maintain your blood glucose levels in the desired range. Never run out of diabetes medicine or insulin. It is needed every day. If you are using insulin, you may need to adjust the amount of insulin given based on your intake of carbohydrates. Carbohydrates can raise blood glucose levels but need to be included in your diet. Carbohydrates provide vitamins, minerals, and fiber which are an essential part of a healthy diet. Carbohydrates are found in fruits, vegetables, whole grains, dairy products, legumes, and foods containing added sugars. Eat healthy foods. You should make an appointment to see a registered dietitian to help you create an eating plan that is right for you. Lose weight if you are overweight. Carry a medical alert card or wear your medical alert jewelry. Carry a 15-gram carbohydrate snack with you at all times to treat low blood glucose (hypoglycemia). Some examples of 15-gram carbohydrate snacks include: Glucose tablets, 3 or 4. Glucose gel, 15-gram tube. Raisins, 2 tablespoons (24 grams). Jelly beans, 6. Animal crackers, 8. Regular pop, 4 ounces (120 mL). Gummy treats, 9. Recognize hypoglycemia. Hypoglycemia occurs with blood glucose levels of 70 mg/dL and below. The risk for hypoglycemia increases when fasting or skipping meals, during or after intense exercise, and during sleep. Hypoglycemia symptoms can include: Tremors or shakes. Decreased ability to concentrate. Sweating. Increased heart rate. Headache. Dry mouth. Hunger. Irritability. Anxiety. Restless sleep. Altered speech or coordination. Confusion. Treat hypoglycemia promptly. If you are alert and able to safely swallow , follow the 15:15 rule: Take 1520 grams of rapid-acting glucose or carbohydrate. Rapid-acting options include glucose gel, glucose tablets, or 4 ounces (120 mL) of fruit juice, regular soda, or low-fat milk. Check your blood glucose level 15 minutes after taking the glucose. Take 1520 grams more of glucose if the repeat blood glucose level is still 70 mg/dL or below. Eat a meal or snack within 1 hour once blood glucose levels return to normal. Be alert to feeling very thirsty and urinating more frequently than usual , which are early signs of hyperglycemia. An early awareness of hyperglycemia allows for prompt treatment. Treat hyperglycemia as directed by your health care provider. Engage in at least 150 minutes of moderate-intensity physical activity a week, spread over at least 3 days of the week or as directed by your health care provider. In addition, you should engage in resistance exercise at least 2 times a week or as directed by your health care provider. Try to spend no more than 90 minutes at one time inactive. Adjust your medicine and food intake as needed if you start a new exercise or sport. Follow your sick-day plan anytime you are unable to eat or drink as usual. Do not use any tobacco products including cigarettes, chewing tobacco, or electronic cigarettes. If you need help quitting, ask your health care provider. Limit alcohol intake to no more than 1 drink per day for non women and 2 drinks per day for men. You should drink alcohol only when you are also eating food. Talk with your health care provider whether alcohol is safe for you. Tell your health care provider if you drink alcohol several times a week. Keep all follow-up visits as directed by your health care provider. This is important. Schedule an eye exam soon after the diagnosis of type 2 diabetes and then annually. Perform daily skin and foot care. Examine your skin and feet daily for cuts, bruises, redness, nail problems, bleeding, blisters, or sores. A foot exam by a health care provider should be done annually. Proctor your teeth and gums at least twice a day and floss at least once a day. Follow up with your dentist regularly. Share your diabetes management plan with your workplace or school. Keep your immunizations up to date. It is recommended that you receive a flu (influenza) vaccine every year. It is also recommended that you receive a pneumonia (pneumococcal) vaccine. If you are 65 years of age or older and have never received a pneumonia vaccine, this vaccine may be given as a series of two separate shots. Ask your health care provider which additional vaccines may be recommended. Learn to manage stress. Obtain ongoing diabetes education and support as needed. Participate in or seek rehabilitation as needed to maintain or improve independence and quality of life. Request a physical or occupational therapy referral if you are having foot or hand numbness, or difficulties with grooming , dressing, eating, or physical activity. SEEK MEDICAL CARE IF: You are unable to eat food or drink fluids for more than 6 hours. You have nausea and vomiting for more than 6 hours. Your blood glucose level is over 240 mg/dL. There is a change in mental status. You develop an additional serious illness. You have diarrhea for more than 6 hours. You have been sick or have had a fever for a couple of days and are not getting better. You have pain during any physical activity. SEEK IMMEDIATE MEDICAL CARE IF: You have difficulty breathing. You have moderate to large ketone levels. MAKE SURE YOU: Understand these instructions. Will watch your condition. Will get help right away if you are not doing well or get worse. This information is not intended to replace advice given to you by your health care provider. Make sure you discuss any questions you have with your health care provider. Document Released: 10/23/2006 Document Revised: 08/11/2015 Document Reviewed: [facility] Patient Information 2015 [employer] [facility]. No follow up information was provided. Extracted from: Title: Office Visit Note- Pre-op Author: Elvira Pacheco PA-C Date: Assessment/Plan Apnea, sleep Pt has h/o needingoxygen after anesthesia. Also CXR shows some atelectasis. Recommend careful observation of O2 satsduring/after surgery and O2 as needed. Ordered: Office Visit Level 4 Est 95922 CAD (coronary artery disease) of artery bypass graft Pt did get cardiac clearance from Dr. Rich yesterday. Pt and nurse confirmed that office note/ clearance, ECG and recommendations for post-op anticoagulation will be sent directly to Dr. Zheng's office. Pt has already stopped his Plavix and ASA. There was no pre-op bridging according to pt. Ordered: Office Visit Level 4 Est 12090 Diabetes HgbA1C was checked on 11/11/15, and was 6.9%. Knee pain, left Pt is scheduled to undergo TKA with Dr. Zheng on 01/05/16. Ordered: Office Visit Level 4 Est 64298 Pre-operative general physical examination Clearance is pending pt's lab work. Will make addendum when these are available. Ordered: CBC w/ Differential Comprehensive Metabolic Panel Office Visit Level 4 Est 92490
--- OUTSIDE RECORDS SUMMARY | 2017-02-13 14:17 | XMS REPORT | Referral Summary ---
Author Author [facility], [facility] Care Organization [facility] Address Unknown Phone Unavailable Care Team Providers Care Sales Force Developer Name Role Phone Leida Aranda Primary Care Physician [phone] Encounter [facility] [id number] Date(s): 06/26/15 - 06/26/15 [facility] [address] [place] [phone] Discharge Diagnosis: Gout attack Discharge Disposition: 01-Home or Self Care Attending Physician: Daniel Gregorio DO Admitting Physician: Daniel Gregorio DO Vital Signs Most recent to 1 oldest [Reference Range]: Temperature Tympanic 37.0 degC [36.6-38.1 degC] (06/26/15 6:37 PM) Apical Heart Rate 76 bpm [60-100 bpm] (06/26/15 6:37 PM) Blood Pressure 124/58 mmHg [90-140/60-90 mmHg] (06/26/15 6:37 PM) SpO2 97 % (06/26/15 6:37 PM) Problem List Condition Effective Dates Status [...] Daily, # 90 tabs, 1 Refill(s), Pharmacy: [facility] # [id number], 1 tabs Oral Daily Start Date: 11/11/15 [...] later, # 30 tabs, 0 Refill(s), Pharmacy: [id number] Start Date: 06/26/15 Stop Date: 06/26/15 Status: Ordered Glucometer strips (DME) DME Item Contour Test Strips. Test blood sugars daily as directed by physician. , See Instructions, 0 Refill(s), Supply Start Date: 10/07/14 Status: Ordered Klor-Con M10 oral tablet, extended release 10 mEq 1 tabs, Oral, Daily, # 90 tabs, 1 Refill(s), Pharmacy: [facility] # [id number], 1 tabs Oral Daily,x90 days Start Date: 12/24/15 Stop Date: 03/23/16 Status: Ordered Lasix 40 mg oral tablet 40 mg 1 tabs, Oral, BID, # 90 tabs, 1 Refill(s), Pharmacy: [facility] # [id number], 1 tabs Oral Daily Start Date: 11/03/15 Status: Ordered nitroglycerin 0.4 mg sublingual spray 1 sprays, SubLingual, as needed for chest pain, may repeat 2 times with about 5 min between them, 0 Refill(s) Start Date: 10/07/14 Status: Ordered pantoprazole 40 mg oral delayed release tablet See Instructions, TAKE 1 TABLET DAILY, # 90 tabs, 3 Refill(s), eRx: [facility], TAKE 1 TABLET DAILY Start Date: 03/09/15 Status: Ordered Plavix 75 mg oral tablet 75 mg 1 tabs, Oral, Daily, # 30 tabs, 3 Refill(s), Pharmacy: [facility] # [id number], 1 tabs Oral Daily Start Date: 11/30/15 Status: Ordered venlafaxine 150 mg oral tablet, extended release See Instructions, TAKE 1 TABLET(=150MG)EVERY DAY IN THE MORNING AT THE SAME TIME EACH DAY WITH FOOD, # 90 tabs, 1 Refill(s), eRx: [facility], TAKE 1 TABLET(=150MG)EVERY DAY [...] chewing Assessment and Plan Extracted from: Title: Office Visit Note Author: Daniel Gregorio DO Date: 06/26/15 Assessment/Plan Gout attack Pathophysiology of this presentation, and differential diagnosis, discussed in detail with the patient and his was present. All questions were answered. 1. CBC done at [facility] was essentially normal. Basic metabolic profile was significant for CKD stage III with GFR of 56. 2. His uric acid was 9.9 3. Imaging of the wrist was negative for any bony disruption. 4. Clinically this appears to be gout. He was started on colchicine 1.2 mg at the onset, may repeat with 0.6 mg one hour after the initial treatment in a 24-hour period of time. He may take an additional 0.6 mg daily if his symptoms persist for a couple of days. 5. Recommended following up with his primary care provider next week, he may need to be on allopurinol for prevention. 6. Follow-up if worsening presentation, or no improvement in the next couple of days. Ordered: colchicine, 1.2 mg 2 tabs, Oral, Daily, as needed for gout pain, 2 tabs at the first sign of a gout flare followed by 0.6 mg one hour later, # 30 tabs, 0 Refill(s), Pharmacy: [facility] [id number]
--- OUTSIDE RECORDS SUMMARY | 2017-02-13 14:18 | XMS REPORT | Referral Summary ---
Author Author [facility], Care Organization [facility] Address Unknown Phone Unavailable Care Team Providers Care Assistant Credit Manager Name Role Phone Leida Aranda Primary Care Physician [phone] Encounter [facility] [id number] Date(s): 12/21/15 - 12/21/15 [facility] [address] [place] [phone] [place] Discharge Diagnosis: Traumatic hematoma of right upper arm Discharge Disposition: 01-Home or Self Care Attending Physician: Antonio Gagnon PA-C Admitting Physician: Antonio Gagnon PA-C Vital Signs Most recent to 1 oldest [Reference Range]: Temperature Tympanic 37.2 degC [36.6-38.1 degC] (12/21/15 4:06 PM) Peripheral Pulse 99 bpm Rate [60-100 bpm] (12/21/15 4:06 PM) Respiratory Rate 97 br/min [14-20 br/min] *HI* (12/21/15 4:06 PM) Blood Pressure 122/78 mmHg [90-140/60-90 mmHg] (12/21/15 4:06 PM) Problem List Condition Effective Dates Status [...] Pharmacy: [facility] # [id number], 1 tabs Oral Daily Start Date: 11/11/15 Status: Ordered Ambien 10 mg oral tablet 10 mg 1 tabs, Oral, Bedtime (once a day), MUST LAST 90 DAYS [facility] [phone] 1996/DR. DOMINGUEZ FOR DR. ARANDA, # 90 Each, [...] later, # 30 tabs, 0 Refill(s), Pharmacy: [facility] [id number] Start Date: 06/26/15 Stop Date: 06/26/15 Status: Ordered gemfibrozil 600 mg oral tablet 600 mg 1 tabs, Oral, BID, # 60 tabs, 0 Refill(s), Pharmacy: [facility] # [id number], 1 tabs Oral BID Start Date: 10/29/15 Status: Ordered Glucometer strips (DME) DME Item Contour Test Strips. Test blood sugars daily as directed by physician. , See Instructions, 0 Refill(s), Supply Start Date: 10/07/14 Status: Ordered Klor-Con 10 oral tablet, extended release 10 mEq 1 tabs, Oral, Daily, APPOINTMENT NEEDED PRIOR TO ADDITIONAL REFILLS., # 30 tabs, 0 Refill(s), Pharmacy: [facility] #[id number], 1 tabs Oral Daily, Instr:APPOINTMENT NEEDED PRIOR TO ADDITIONAL REFILLS. Start Date: 10/29/15 Status: Ordered Lasix 40 mg oral tablet 40 mg 1 tabs, Oral, BID, # 90 tabs, 1 Refill(s), Pharmacy: [facility] # [id number], 1 tabs Oral Daily Start Date: 11/03/15 [...] 3 Refill(s), eRx: [facility], TAKE 1 TABLET DAILY Start Date: 03/09/15 Status: Ordered Plavix 75 mg oral tablet 75 mg 1 tabs, Oral, Daily, # 30 tabs, 3 Refill(s), Pharmacy: [facility] # [id number], 1 tabs Oral Daily Start Date: 11/30/15 Status: Ordered venlafaxine 150 mg oral tablet, extended release See Instructions, TAKE 1 TABLET(=150MG)EVERY DAY IN THE MORNING AT THE SAME TIME EACH DAY WITH FOOD, # 90 tabs, 1 Refill(s), eRx: [facility], TAKE 1 TABLET(=150MG)EVERY DAY IN THE [...] PMM/PLM w/chondroplasty Buhr 10/19/07 L knee PMM/PLM Bu 06/22/07 Lithotripsy 07/23/03 Lithotripsy 04/21/99 Cystourethroscopy 04/20/99 Ureteroscopy 04/20/99 Lithotripsy 03/24/99 cystourethroscopy and removal of stent Social History Social History Type Response Smoking Status Former smoker; Type: Oral1, 2 1Quit "a few months ago" 2current chewing Assessment and Plan No data available for this section
[2017-02-13] MEDS ORDERED: ACET-2321 PO (15:29)
[2017-02-13] MEDS ORDERED: MELO-273 PO (15:29)
[2017-02-13] MEDS ORDERED: ATOR40TA64 PO (15:29)
[2017-02-13] MEDS ORDERED: ASPI-557 PO (15:29)
[2017-02-13 16:42] LABS: BASOPHILS % (AUTO) 0.1 % (0-2); EOSINOPHILS # (AUTO) 0.2 T/MM3 (0-0.5); HGB - HEMOGLOBIN 14.5 GM/DL (13.5-17.5); IMMATURE GRANULOCYTE # (AUTO) 0.04 T/MM3 (0.00-0.03); IMMATURE GRANULOCYTE % (AUTO) 0.5 % (0.0-0.5); LYMPHOCYTES # (AUTO) 2.9 T/MM3 (1-4.8); LYMPHOCYTES % (AUTO) 36.5 % (23-45); MEAN CORPUSCULAR HGB 30.7 UUG (26-34); MEAN CORPUSCULAR VOLUME 93.2 UM3 (80-100); MEAN PLATELET VOLUME 8.8 UM3 (9.4-12.4); MONOCYTES # (AUTO) 0.7 T/MM3 (0-0.8); MONOCYTES % (AUTO) 9.3 % (0-9.0); NEUTROPHILS #(AUTO)-ABSOLUTE 4.1 T/MM3 (1.8-7.7); NEUTROPHILS % (AUTO) 51.6 % (33-66); RED BLOOD COUNT 4.72 M/MM3 (4.50-5.90)
--- NOTE | 2017-02-13 17:03 | NUR ---
CM CM IN TO VISIT WITH PT. HE IS ALERT AND ORIENTED. HIS SPOUSE IS PRESENT. PT PLANS TO RETURN HOME. HE DENIES NEEDS. PT AND REFUSE TO SIGN GLYNN. INFORMATION IS REVIEWED WITH PT AND SPOUSE. THEY ARE GIVEN UNSIGNED COPY ALONG WITH CM CONTACT INFORMATION. Addendum: 02/13/17 at 1704 by ALESSIA STOREY RN Amended: Links added.
[2017-02-13 17:27] LABS: ALBUMIN 4.1 G/DL (3.5-5.0); ALBUMIN/GLOBULIN RATIO 1.5 RATIO (1.1-2.2); ALKALINE PHOSPHATASE 127 U/L (38-126); ALT (SGPT) 60 U/L (21-72); ANION GAP 13 MEQ/L (5-15); AST (SGOT) 40 U/L (17-59); BUN/CREATININE RATIO 20 RATIO (6-26); CALCIUM 9.1 MG/DL (8.4-10.2); CHLORIDE 105 MEQ/L (98-107); CO2 - CARBON DIOXIDE 27 MEQ/L (22-30); CREATININE 0.9 MG/DL (0.8-1.5); GLOMERULAR FILTRATION RATE 84; GLUCOSE 101 MG/DL (75-110); POTASSIUM 3.8 MEQ/L (3.6-5); SODIUM 145 MEQ/L (134-144); TOTAL PROTEIN 6.9 G/DL (6.3-8.2)
[2017-02-13] MEDS ORDERED: NITROGLYCERIN 50mg/10ml INJECTION IV ONE (17:55)
[2017-02-13] MEDS ORDERED: VERAPAMIL 5mg/2ml INJECTION IV ONE (17:55)
[2017-02-13] MEDS ORDERED: LIDOCAINE 1% (10mg/ml) 30ml SDV ONE (17:56)
[2017-02-13] MEDS ORDERED: HEPARIN 1,000units in NS 500ml BAG IV ONE (17:56)
[2017-02-13] MEDS ORDERED: FENTANYL 100mcg/2ml INJECTION ONE (18:30)
--- NOTE | 2017-02-13 18:30 | NUR ---
PROCEDURE PT TO WIRE BASKET MAKER PER CATH CART. ATTENDING.
[2017-02-13] MEDS ORDERED: SALINE FLUSH 10ml SYRINGE ONE (18:31)
[2017-02-13] MEDS ORDERED: MIDAZOLAM 2mg/2ml INJECTION ONE ×2 (18:31→18:52)
[2017-02-13] MEDS ORDERED: NORMAL SALINE 1,000 ML ONE (18:34)
[2017-02-13] MEDS ORDERED: IOHEXOL 350mg/ml 200ml BOTTLE ONE ×2 (18:41→19:13)
[2017-02-13] MEDS ORDERED: NITROGLYCERIN 0.4 MG SUBLINGUAL TABLET ONE (19:34)
--- NOTE | 2017-02-13 19:40 | HPF ---
CHIEF COMPLAINT Chest pain. HISTORY OF PRESENT ILLNESS Mr. Dumont is a very pleasant 66-year-old male, well known to me, who presented with worsening chest pain for the past week. He was last seen in the office on January 12 where he described two episodes of angina described as a pinching pain and spasm in the left upper chest lasting up to two minutes. He denies any worsening or alleviating factors of his chest pain. He has coronary artery disease with prior CABG x 4 in 2013. He underwent pharmacological stress nuclear scan on February 07 that was associated with mild dyspnea but no chest pain. Electrically borderline positive with mild additional ST-segment depression of 0.5 - 1 mm and scintigraphically up to moderate reversible ischemia in the anterior and anteroseptal wall, equivocal reversible ischemia in the inferior and inferolateral wall with normal LVEF measured at 58% on stress images and 62% on rest images. The patient comes in today to discuss results. He states he has been having worsening chest pain since last week. He has been under a lot of stress due to family issues. He describes the pain as left-sided pinching and has both qualities of cold and burning sensation "like a menthol pinch." The more he thinks about it the worse it gets and he tends to just ignore it. He thinks it has been going on pretty much all the time but he has had a few episodes in the past few days that have gotten worse. He does not correlate the chest pain with physical activity. No radiation. He did have some mild associated shortness of breath. The pain did not get bad enough to need nitroglycerin spray, he said. He does some activity around the house including mowing which he just started doing this season, and climbing a few steps, up to five, from the basement and entering his house. This does not cause him to have chest pain. He says that his symptoms prior to his bypass were mostly shortness of breath and fatigue but there are other reports of chest pain as well. He is kind of a vague historian. In the office he was having ongoing 2/10 chest pain and I had him take two sublingual nitroglycerin sprays and that made minimal, if any, mild improvement. REVIEW OF SYSTEMS Ten-system review positive for night sweats. Negative for fever or chills. Negative for nosebleeds or visual changes. Negative for abdominal pain, hematochezia, melena, nausea or vomiting. Negative for dysuria or hematuria. Negative for dyspnea, wheezing or phlegm production. Positive for shoulder pain and carpal tunnel syndrome in both hands, he said. Positive for depression, anxiety and increased stress. Negative for bleeding, easy bruising, heat or cold intolerance. FAMILY HISTORY Father from congestive heart failure at age 61. Mother is still living. She had CABG in her 70s. SOCIAL HISTORY He is retired, . Quit smoking 35 years ago. He chewed tobacco for up to 30 years - quit three years ago. He drinks alcohol socially. HOME MEDICATIONS Reviewed in EMR in detail including Meloxicam. Furosemide. Atorvastatin. Potassium chloride. Pantoprazole. Nitroglycerin spray. Effexor. CPAP. Colchicine. Carvedilol 25 mg b.i.d. Aspirin. Ambien. Allopurinol. CoQ10. PAST MEDICAL HISTORY/PAST SURGICAL HISTORY Coronary artery disease with prior CABG x 4 in 2013. Type 2 diabetes mellitus. Dyslipidemia. Obstructive sleep apnea. Hypertension. PHYSICAL EXAM GENERAL: Alert and oriented x 3. Moderately obese. Pleasant. Looks in no acute cardiorespiratory distress. VITAL SIGNS: Blood pressure 138/72. Pulse 88 beats per minute. Respirations 16/unlabored. Weight 242 pounds. He stands 5'3". HEENT: Normocephalic, atraumatic. Pupils equal, round and reactive. NECK: Jugular venous pressure is normal. Carotid upstrokes are equal without bruits. CHEST: Perfectly clear to auscultation bilaterally. No chest wall tenderness is present. HEART: Regular rate and rhythm. Positive S4. No murmurs, rubs or clicks. Normal S1 and S2. ABDOMEN: Soft, nontender, nondistended. Normoactive bowel sounds are present. No organomegaly or masses. EXTREMITIES: Lower extremities are without pitting edema. Peripheral pulses are intact. NEUROLOGIC: Without focal sensorimotor deficits. Cranial nerves are grossly intact. EKG obtained today in the office showed normal sinus rhythm, 91 beats per minute. Diffuse ST-T abnormalities in inferolateral distribution. No new changes are compared with previous from 2016. IMPRESSION 1. Left-sided chest pain, some atypical features. 2. Coronary artery disease with prior CABG x 4 in 2013. Normal LV function. 3. Dyslipidemia. 4. Type 2 diabetes mellitus. 5. Hypertension. 6. Obstructive sleep apnea with restless leg syndrome. 7. Anxiety and depression. DISCUSSION/PLAN 1. Admit to [facility] telemetry bed outpatient status. 2. Obtain serial cardiac enzymes. 3. Counseled on indications, alternatives, risks and benefits of heart catheterization. He is in agreement to proceed. Consent obtained. 4. IV fluids, n.p.o. for now. JAYDEN
--- NOTE | 2017-02-13 19:50 | NUR ---
RETURN TO ROOM 124 FROM FOUR SLIDE MACHINE OPERATOR PER CART WITH GIOVANA ARTEAGA, FOUR SLIDE MACHINE OPERATOR STAFF. PT ALERT AND ORIENTED, TR BAND IN PLACE AT LEFT WRIST. PT AWARE HE WILL BE GOING TO CCU BED 6 ERIN.
[2017-02-13] MEDS ORDERED: LORAZEPAM 0.5 MG TABLET PO PRN (20:45)
[2017-02-13] MEDS ORDERED: ACETAMINOPHEN 325 MG TABLET PO PRN ×2 (20:45)
[2017-02-13] MEDS ORDERED: MILK OF MAGNESIA 30 ML SUSP PO PRN (20:45)
[2017-02-13] MEDS ORDERED: ONDANSETRON 4mg/2ml INJECTION IV PRN (20:45)
[2017-02-13] MEDS ORDERED: CLOPIDOGREL 75 MG TABLET PO ONE (20:45)
[2017-02-13] MEDS ORDERED: NORMAL SALINE IV SCH ×2 (20:45→21:42)
[2017-02-13] MEDS ORDERED: METOCLOPRAMIDE 10mg/2ml INJECTION IV PRN (20:45)
[2017-02-13] MEDS ORDERED: MORPHINE SULFATE 2 MG SYRINGE IV PRN (20:45)
[2017-02-13] MEDS ORDERED: MAG-AL + SIM LIQUID 30 ML UDC PO PRN (20:45)
[2017-02-13] MEDS ORDERED: PROMETHAZINE 25 MG INJECTION IV PRN (20:45)
[2017-02-13] MEDS ORDERED: ATROPINE 1 MG/ML VIAL IV PRN (20:45)
[2017-02-13] MEDS ORDERED: HEPARIN IV SCH ×2 (20:45→21:42)
[2017-02-13] MEDS ORDERED: HYDROCODONE/APAP 5 mg/325 mg TABLET PO PRN (20:45)
[2017-02-13] MEDS ORDERED: MORPHINE SULFATE 4 MG SYRINGE IV PRN ×2 (20:45)
[2017-02-13] MEDS ORDERED: BISACODYL 10 MG SUPPOSITORY RECTALLY PRN (20:45)
[2017-02-13] MEDS ORDERED: LORAZEPAM 2 MG/ML INJECTION IV PRN (20:45)
[2017-02-13] MEDS ORDERED: NITROGLYCERIN 0.4 MG SUBLINGUAL TABLET SL PRN (20:45)
[2017-02-13] MEDS ORDERED: BISACODYL 5 MG E.C. TABLET PO PRN (20:45)
[2017-02-13] MEDS: NORMAL SALINE 1,000 ML IV SCH (21:15)
--- NOTE | 2017-02-13 21:30 | NUR ---
HEPARIN CONSULT (Initial): 66 y.o. M with Heparin drip ordered post cath. Patient to have stent placed in am. Heparin ordered to be turned off 02/14/17 at 0500. Baseline platelet count = 278 T/mm3. PTT Target Range = 50-75 Will give Heparin Bolus of 4,000 units, start Heparin Drip at 1000 units/hr (25 ml/hr). Heparin 20,000 units in D5W 500ml. We will continue to monitor and make adjustments accordingly. Thank you. Salima Erickson [facility]
--- NOTE | 2017-02-13 22:20 | NUR ---
SUMMARY PT BACK FROM HEART CATH AT 1950. ALERT AND ORIENTED X3. HAS BEEN UP TO VOID ONCE ABOUT 2209. TR BAND TO LEFT WRIST HAS BEEN ASYMPTOMATIC, SOFT AND HAS NOT BLED. A TOTAL OF 9CC HAS ALREADY BEEN REMOVED FROM TR BAND. PT HAS DENIED PAIN IN LEFT PUNCTURE SITE BUT THE 1/10 CHEST PAIN HAS REMAINED. LAST HAD 1 SL NITRO WHILE IN FIELD EVIDENCE TECHNICIAN. REPORT WAS GIVEN TO CCU HEMANTH QUINTEROS AND PT IS IN PROCESS OF TRANSFER TO ROOM 6 IN CCU. CLARIFIED ORDERS WITH DR. MAYFIELD THAT PT TO BE BACK IN FIELD EVIDENCE TECHNICIAN IN A.M., PT AND SPOKE WITH DR. MAYFIELD IN PERSON AT APPROXIMATELY 2119. MARBLE MASON BRINGING MEDS TO CCU INCLUDING THE NEW ANTICOAGULANT MEDS TO BE STARTED TONIGHT.
--- NOTE | 2017-02-13 22:20 | NUR ---
Transfer to CCU Pt transferred from Surgical unit to CCU 6 at this time via bed. Accompanied by forest supervisor, Helen Carlos, and NTElaine. Pt transferred self from bed to CCU bed. Steady gait. Rates chest pain at a /10. VSS. Received by this CCU RN and Mala QUEVEDO.
[2017-02-13] MEDS: NITROGLYCERIN 2% OINTMENT 1 G PACKET TOP SCH (22:25)
[2017-02-13] MEDS ORDERED: HEPARIN 20,000 units/D5W 500ml 500 ML IV SCH (22:45)
[2017-02-13] MEDS: ZOLPIDEM 10 MG TABLET PO SCH (23:16)
[2017-02-13] MEDS: ATORVASTATIN 40 MG TABLET PO SCH (23:16)
[2017-02-13] MEDS: VENLAFAXINE XR 150 MG CAPSULE PO SCH (23:24)
[2017-02-14] VITALS (41 sets, daily range): BP systolic 85–185; BP diastolic 52–90; PULSE 64–83; RESP 12–30; TEMP 97.7–98.9; O2SAT 88–96
[2017-02-14] MEDS: NORMAL SALINE 1,000 ML IV SCH ×2 (02:09→09:55)
[2017-02-14] MEDS: NITROGLYCERIN 2% OINTMENT 1 G PACKET TOP SCH ×2 (05:00→09:55)
[2017-02-14 05:27] LABS: BASOPHILS % (AUTO) 0.3 % (0-2); EOSINOPHILS # (AUTO) 0.2 T/MM3 (0-0.5); EOSINOPHILS % (AUTO) 2.1 % (0-4); HCT - HEMATOCRIT 40.4 % (41-53); HGB - HEMOGLOBIN 13.5 GM/DL (13.5-17.5); IMMATURE GRANULOCYTE # (AUTO) 0.02 T/MM3 (0.00-0.03); IMMATURE GRANULOCYTE % (AUTO) 0.3 % (0.0-0.5); LYMPHOCYTES # (AUTO) 2.7 T/MM3 (1-4.8); LYMPHOCYTES % (AUTO) 35.9 % (23-45); MEAN CORPUSCULAR HGB 31.3 UUG (26-34); MEAN CORPUSCULAR HGB CONC(MCHC 33.4 GM/DL (31-37); MEAN CORPUSCULAR VOLUME 93.5 UM3 (80-100); MEAN PLATELET VOLUME 8.8 UM3 (9.4-12.4); MONOCYTES # (AUTO) 0.7 T/MM3 (0-0.8); MONOCYTES % (AUTO) 8.5 % (0-9.0); NEUTROPHILS % (AUTO) 52.9 % (33-66); RED BLOOD COUNT 4.32 M/MM3 (4.50-5.90); WBC - WHITE BLOOD COUNT 7.6 T/MM3 (4.5-11.0)
[2017-02-14 05:38] LABS: ANION GAP 10 MEQ/L (5-15); BUN/CREATININE RATIO 18 RATIO (6-26); CALCIUM 8.8 MG/DL (8.4-10.2); CHLORIDE 105 MEQ/L (98-107); CO2 - CARBON DIOXIDE 26 MEQ/L (22-30); CREATININE 0.9 MG/DL (0.8-1.5); GLOMERULAR FILTRATION RATE 84; GLUCOSE 137 MG/DL (75-110); POTASSIUM 3.9 MEQ/L (3.6-5); SODIUM 141 MEQ/L (134-144)
[2017-02-14] MEDS: PANTOPRAZOLE 40 MG TABLET PO SCH (06:04)
[2017-02-14 06:07] LABS: LDL CHOLESTEROL,CALCULATED 43.6 (66-159); RISK FACTOR 3.7 RATIO (0-5.0); VLDL CHOLESTEROL 49.4 MG/DL (0-28)
--- NOTE | 2017-02-14 06:30 | NUR ---
Consent Consent signed for stent placement.
[2017-02-14] MEDS: COLCHICINE 0.6 MG TABLET PO SCH (06:32)
--- NOTE | 2017-02-14 06:42 | NUR ---
Shift Summary Pt slept well during the night. Wore home cpap. VSS. Minimal chest pain. No prn's administered. Remains on RA. NPO at midnight for procedure this morning.
[2017-02-14] MEDS ORDERED: HEPARIN 1,000units in NS 500ml BAG IV ONE (06:43)
[2017-02-14] MEDS ORDERED: IOHEXOL 350mg/ml 200ml BOTTLE ONE (06:43)
[2017-02-14] MEDS ORDERED: LIDOCAINE 1% (10mg/ml) 30ml SDV ONE (06:43)
[2017-02-14] MEDS ORDERED: CARV12.52 PO (06:44)
[2017-02-14] MEDS ORDERED: FENTANYL 100mcg/2ml INJECTION ONE (06:58)
[2017-02-14] MEDS ORDERED: SALINE FLUSH 10ml SYRINGE ONE (06:58)
[2017-02-14] MEDS ORDERED: MIDAZOLAM 2mg/2ml INJECTION ONE ×2 (06:58→07:49)
[2017-02-14] MEDS ORDERED: CARVEDILOL 25 MG TABLET PO SCH (08:00)
--- NOTE | 2017-02-14 08:05 | DI ---
Indication: ITS.REASON: Unstable angina PROCEDURE: CHEST 1 VIEW: Encounter: Initial Comparison: 04/28/2016 Findings: The lungs are stable in appearance without new focal airspace consolidation. There is no pleural effusion or pneumothorax. The heart size, pulmonary vascularity and mediastinal contours are unchanged. Prior CABG IMPRESSION: Stable appearance of the chest without acute cardiopulmonary disease. .
[2017-02-14] MEDS ORDERED: LORAZEPAM 1 MG TABLET PO PRN (09:00)
[2017-02-14] MEDS ORDERED: ATROPINE 1 MG/ML VIAL IV PRN (09:00)
[2017-02-14] MEDS ORDERED: MAG-AL + SIM LIQUID 30 ML UDC PO PRN (09:00)
[2017-02-14] MEDS ORDERED: NITROGLYCERIN 0.4 MG SUBLINGUAL TABLET SL PRN (09:00)
[2017-02-14] MEDS ORDERED: LORAZEPAM 2 MG/ML INJECTION IV PRN (09:00)
[2017-02-14] MEDS ORDERED: PROMETHAZINE 25 MG INJECTION IV PRN (09:00)
[2017-02-14] MEDS ORDERED: HYDROCODONE/APAP 5 mg/325 mg TABLET PO PRN (09:00)
[2017-02-14] MEDS ORDERED: ACETAMINOPHEN 325 MG TABLET PO PRN (09:00)
[2017-02-14] MEDS ORDERED: MORPHINE SULFATE 4 MG SYRINGE IV PRN ×2 (09:00)
[2017-02-14] MEDS ORDERED: ONDANSETRON 4mg/2ml INJECTION IV PRN (09:00)
[2017-02-14] MEDS ORDERED: MILK OF MAGNESIA 30 ML SUSP PO PRN (09:00)
[2017-02-14] MEDS ORDERED: BISACODYL 10 MG SUPPOSITORY RECTALLY PRN (09:00)
[2017-02-14] MEDS ORDERED: BISACODYL 5 MG E.C. TABLET PO PRN (09:00)
[2017-02-14] MEDS ORDERED: METOCLOPRAMIDE 10mg/2ml INJECTION IV PRN (09:00)
[2017-02-14] MEDS ORDERED: COENZYME Q10 200 MG TABLET PO SCH (09:00)
--- NOTE | 2017-02-14 09:01 | CVPROF ---
DATE OF PROCEDURE 02/14/2017 SURGEON Hany Rich MD REFERRING PHYSICIAN Fredy Rich MD PROCEDURES PTCA and stent placement of the first obtuse marginal branch of the circumflex artery. MEDICATIONS Given by Anesthesia. Please refer to Anesthesia notes. COMPLICATIONS None DESCRIPTION OF PROCEDURE The patient was brought into the cardiac catheterization laboratory. The right groin was prepped and draped in the usual sterile technique. 1% Xylocaine was used for local anesthesia. A 6 Ukrainian Hemaquet was inserted in right femoral artery. A 6 Ukrainian JCL guide was inserted in the left main coronary artery. Runthrough wire was advanced through the distal first obtuse marginal branch of the circumflex artery. A 2.5 x 15 mm balloon was used for predilatation. Subsequently a 2.75 x 18 mm drug-eluting stent was deployed up to 14 atmospheres (3.05 mm) and then postdilated with a 3.0 x 12 mm non-compliant balloon. Additional views were obtained. Angiography performed of right femoral artery and Mynx closure device deployed successfully. RESULTS PTCA and stent placement was successful reducing stenosis in first obtuse marginal branch from about 80% down to 0% with JUN-3 flow before and after procedure. This lesion was distal to the previously stented segment in the first obtuse marginal branch of the circumflex artery. SUMMARY Successful drug-eluting stent placement in first obtuse marginal branch of the circumflex artery placed distal to the previously stented segment with excellent angiographic results as noted above. [facility]ITAL[facility]
[2017-02-14] MEDS: CLOPIDOGREL 75 MG TABLET PO SCH (09:54)
[2017-02-14] MEDS: COENZYME Q10 200 MG TABLET PO SCH (09:54)
[2017-02-14] MEDS: CARVEDILOL 12.5 MG TABLET PO SCH ×2 (09:56→17:20)
[2017-02-14] MEDS: ASPIRIN *EC* 81mg TABLET PO SCH (09:57)
[2017-02-14] MEDS: ALLOPURINOL 300 MG TABLET PO SCH (09:57)
--- NOTE | 2017-02-14 10:45 | NUR ---
CARDIAC REHAB ORDER RECEIVED FOR OP CR, EXPLAINED PROGRAM TO PATIENT AND GAVE BROCHURE. WILL CALL THIS WEEK TO SET UP ORIENTATION.
--- NOTE | 2017-02-14 11:22 | NUR ---
Morning Pt left for heart cath at 0721 via CCU bed. and family followed behind. Pt returned from optical laboratory mechanic at 0830. Pt was flat in bed and re-educated on bedrest rules. and pt both verbalized understanding. Pt placed on 2L per NC. Pt given water and tolerated well. Will continue to monitor.
--- NOTE | 2017-02-14 11:44 | CVPROF ---
HEART CATHETERIZATION REPORT DATE OF PROCEDURE 02/13/2017 INDICATION Unstable angina in a patient who is diabetic, has hypertension, dyslipidemia, prior multiple coronary stents and ultimately needed CABG x [address] Chance. He presented with worsening left-sided chest pain and a positive stress nuclear scan. His pain is 2/10 and had only mild improvement with sublingual nitro. He was advised on the indication, alternatives, risks, benefits of a heart cath and he agreed to proceed. His initial troponin is normal. His EKG showed diffuse inferolateral ST-T changes but not acute or different from before. PROCEDURE PERFORMED Transradial left heart catheterization, LV gram, coronary angiogram, saphenous vein graft, injection MARSHALL arteriogram, left subclavian arteriogram. CATHETERS USED MARSHALL catheter, Kelvin catheter and multipurpose. NARRATIVE OF PROCEDURE The patient was brought to the cardiac cath laboratory, received IV sedation, Versed and fentanyl. Lidocaine, 1%, about 1.5 cc was injected in the left wrist. Entered the left radial artery without difficulty using modified Seldinger percutaneous technique. A 6-Japanese arterial sheath was introduced in place. The sidearm was aspirated and flushed. Went ahead and injected the usual intraarterial drug combo. Went with a MARSHALL catheter. Performed MARSHALL arteriogram in multiple projections and then a left subclavian arteriogram. Then went down and performed the right coronary arteriogram and cannulated the vein graft with the same catheter. Exchanged for a Kelvin catheter. Performed left coronary arteriogram and selective vein graft injections and exchanged for a multipurpose catheter across the aortic valve, performed a limited LV gram with a hand injection and saphenous vein graft injection to the RCA. Procedure was well tolerated. There was no immediate complications. Patient's chest pain after one sublingual nitroglycerin was down to less than 1/10 without any changes on the EKG. Elected, due to amount of contrast used and known anatomy, that patient be hydrated well tonight, started with anticoagulant and a little Plavix in anticipation of intervention in the morning. Arrangements with Dr. Hany Rich are being made with the seed laboratory technician. FINDINGS 1. HEMODYNAMICS: LVEDP was 16-18 mmHg without any transvalvular pressure gradient present. 2. CORONARY ANGIOGRAM: Left main coronary artery is large, has a distal stenosis, estimated about 50% (difficult to accurately assess by angiography only). LAD is a large vessel, exhibits multiple areas of narrowing of about 50% and a diagonal branch. There is a ramus branch that has ostial narrowing of about 70% with the vein filling in retrograde. The left circumflex artery is a nondominant large-caliber vessel with a stent that is open. However, this extends to the obtuse marginal branch where there is a hazy area of subtotal occlusion including the distal portion of the stent (in-stent restenosis). The vessel caliber is estimated about 2.5 mm at that point. The rest of the obtuse marginal/left circumflex artery is otherwise free from occlusive disease. Back to diagonal branches: The first diagonal branch has ostial narrowing about 40-50%. Mid-LAD exhibits a stenosis, about 50-60%. Second diagonal branch has very mild narrowing. LAD distally exhibits diffuse disease in the apical segment. GRAFT INFORMATION : Saphenous vein graft to the ramus branch is widely patent with a good anastomosis. The obtuse marginal branch is not bypassed. Saphenous vein graft to the diagonal branch is patent with a good anastomosis. [place] right coronary artery exhibits multiple areas of severe occlusion - proximally, mid, where it is subtotal about 98% and distally about 90% before the bifurcation. LV gram shows normal wall motion, normal systolic function. Saphenous vein graft to the distal RCA (RPDA) is widely patent with a good anastomosis. MARSHALL arteriogram shows the MARSHALL is relatively of a small caliber, failed to mature. The flow is slow. Nevertheless, it reaches the mid LAD where it is attached. Left subclavian artery is widely patent. IMPRESSION 1. Severe multivessel coronary artery disease as described above with the distal left main coronary artery about 50% stenosis, mid LAD 50-60% stenosis, ramus branch 70% stenosis, obtuse marginal branch subtotal occlusion (98%), hazy area inside the stent and several areas of severe stenosis in the RCA including 98% in the mid segment. 2. MARSHALL to LAD is small in caliber, appears to have failed to mature, exhibits antegrade but a slow flow. 3. Saphenous vein graft to diagonal branch, ramus and RCA are widely patent. DISCUSSION AND PLAN 1. Review for percutaneous coronary intervention to the obtuse marginal branch which appears to be the culprit lesion. 2. Future additional study regarding MARSHALL graft for further management. [facility]
--- NOTE | 2017-02-14 13:43 | NUR ---
DM Screen Diet: Cardiac CC 1999 Based on Juan Brady with an activity factor of 1.3 and injury factor of 1.0 calorie needs ~2328 to maintain current weight. Patient may lose ~ 1/2 lb per week on 2000 calories Patient doing well with diabetes self-care management as evidenced by his A1C of 6.7 . Patient stated he had diabetes education around 4 years ago and feels he doesn't need further education at the moment. Patient said he only checks his blood sugar when his feels a need to, but rarely does. Patient's is instrumental in helping the patient manage his blood sugars by watching carb intake and including protein with meals. RD information was provided RD available @ 140 Addendum: 02/14/17 at [address] Student charting reviewed by Formal Waiter/Waitress.
--- NOTE | 2017-02-14 18:00 | NUR ---
Activity: sitting up in the bed eating supper. Without c/o at this time.
[2017-02-14] MEDS: VENLAFAXINE XR 150 MG CAPSULE PO SCH (20:47)
--- NOTE | 2017-02-14 21:45 | NUR ---
ACTIVITY BACK TO BED. TOLERATED WELL. VOIDED. DENIES PAIN. RIGHT GROIN SITE SOFT WITHOUT EDEMA. HERE.
[2017-02-14] MEDS: ZOLPIDEM 10 MG TABLET PO SCH (21:46)
[2017-02-14] MEDS: ATORVASTATIN 40 MG TABLET PO SCH (21:46)
[2017-02-15] VITALS (15 sets, daily range): BP systolic 92–144; BP diastolic 50–77; PULSE 66–96; RESP 8–24; TEMP 97.5–98.8; O2SAT 89–94
[2017-02-15 05:09] LABS: BASOPHILS % (AUTO) 0.2 % (0-2); EOSINOPHILS # (AUTO) 0.2 T/MM3 (0-0.5); EOSINOPHILS % (AUTO) 2.1 % (0-4); HCT - HEMATOCRIT 42.7 % (41-53); HGB - HEMOGLOBIN 13.9 GM/DL (13.5-17.5); IMMATURE GRANULOCYTE # (AUTO) 0.01 T/MM3 (0.00-0.03); IMMATURE GRANULOCYTE % (AUTO) 0.1 % (0.0-0.5); LYMPHOCYTES # (AUTO) 2.1 T/MM3 (1-4.8); LYMPHOCYTES % (AUTO) 26.5 % (23-45); MEAN CORPUSCULAR HGB 30.2 UUG (26-34); MEAN CORPUSCULAR HGB CONC(MCHC 32.6 GM/DL (31-37); MEAN CORPUSCULAR VOLUME 92.6 UM3 (80-100); MEAN PLATELET VOLUME 8.9 UM3 (9.4-12.4); MONOCYTES # (AUTO) 0.6 T/MM3 (0-0.8); MONOCYTES % (AUTO) 7.5 % (0-9.0); NEUTROPHILS #(AUTO)-ABSOLUTE 5.1 T/MM3 (1.8-7.7); NEUTROPHILS % (AUTO) 63.6 % (33-66); RED BLOOD COUNT 4.61 M/MM3 (4.50-5.90)
[2017-02-15 05:22] LABS: ANION GAP 11 MEQ/L (5-15); BUN/CREATININE RATIO 14 RATIO (6-26); CALCIUM 9.2 MG/DL (8.4-10.2); CHLORIDE 105 MEQ/L (98-107); CO2 - CARBON DIOXIDE 27 MEQ/L (22-30); CREATININE 0.9 MG/DL (0.8-1.5); GLOMERULAR FILTRATION RATE 84; GLUCOSE 124 MG/DL (75-110); POTASSIUM 4.2 MEQ/L (3.6-5); SODIUM 143 MEQ/L (134-144)
--- NOTE | 2017-02-15 06:00 | NUR ---
STATUS HAS SLEPT WITH OWN CPAP MACHINE. DENIES PAIN. HAS VOIDED. GROIN SITE WITHOUT EDEMA.
[2017-02-15] MEDS: PANTOPRAZOLE 40 MG TABLET PO SCH (07:19)
[2017-02-15] MEDS: COENZYME Q10 200 MG TABLET PO SCH (08:52)
[2017-02-15] MEDS: CARVEDILOL 12.5 MG TABLET PO SCH (08:52)
[2017-02-15] MEDS: ASPIRIN *EC* 81mg TABLET PO SCH (08:53)
[2017-02-15] MEDS: CLOPIDOGREL 75 MG TABLET PO SCH (08:53)
[2017-02-15] MEDS: ALLOPURINOL 300 MG TABLET PO SCH (08:54)
[2017-02-15] MEDS: COLCHICINE 0.6 MG TABLET PO SCH (08:55)
--- NOTE | 2017-02-15 12:19 | PNPDOC ---
Subjective Date DATE: 02/15/17 TIME: 12:15 Subjective no c/o . no further cp . feeling better. walked this am w/o cp .felt a little soa feels related to lying in bed. no wrist or groin pain or swelling Objective Vital Signs Vital signs Vital Signs 02/15/17 02/15/17 02/15/17 02/15/17 01:00 02:00 03:00 04:00 Temp 97.5 Pulse 75 72 77 66 Resp 11 8 9 19 B/P 141/72 112/61 112/53 125/58 Pulse Ox 90 94 93 90 O2 Delivery Room Air Room Air Room Air Room Air 02/15/17 02/15/17 02/15/17 02/15/17 05:01 06:00 07:00 08:00 Pulse 67 77 72 75 Resp 13 21 14 14 B/P 144/69 143/74 136/72 Pulse Ox 93 93 93 O2 Delivery Room Air Room Air Room Air 02/15/17 02/15/17 02/15/17 02/15/17 08:00 09:00 09:17 10:00 Temp 98.7 Pulse 75 87 90 96 Resp 20 16 21 B/P 119/77 131/72 103/50 Pulse Ox 93 89 89 O2 Delivery Room Air Room Air Room Air Telemetry Rhythm: Sinus Rhythm Height (Feet): 5 Height (Inches): 5.00 Weight (Kilograms): 109.000 General Alert, Orientated x 3, No Acute Distress Eyes (Brief) EOMI, PERRL, NOT FOUND: trauma ENMT (Brief) mucosa moist Neck (Brief) NOT FOUND: JVD Respiratory (Brief) clear all lyon, equal bilaterally Cardiovascular (Brief) regular rate, regular rhythm, NOT FOUND: carotid bruits, pedal edema Abdomen (Brief) BS normo active x4, soft, NOT FOUND: distended, tender (Brief) NOT FOUND: deformity Extremities (Brief) Extremity : Extremity Finding: warm, NOT FOUND: clubbing, cyanosis, deformity, discoloration Lymphatic (Brief) NOT FOUND: adenopathy, lymphedema Musculoskeletal (Brief) NOT FOUND: deformity Integumentary (Brief) dry (L wrist nad R groin look dry and clean. no erythma or indue tenderness), pink, warm Neurologic (Brief) FOUND: cranial 2-12 intact, motor, sensory, NOT FOUND: facial droop, ptosis Psychiatric (Brief) alert, normal affect Laboratory Laboratory Laboratory Tests 02/15/17 04:34 Laboratory Tests 02/15/17 04:34 Assessment & Plan Plan/Intensity of Service unstable angina s/P TARIQ to OM DM2 d/c home healthy lifestyle changes reiterated. excited about cardiac rehab CONCHA MAYFIELD MD Feb 15, 2017 12:19
[2017-02-15] MEDS ORDERED: CLOP75TA PO (12:38)
--- NOTE | 2017-02-15 13:03 | NUR ---
CM ANTICIPATED DC DATE TODAY. THIS WORKER SPOKE WITH PT, AND WAS PRESENT WITH PT'S PERMISSION. REVIEWED IM WITH PT, AND HE SIGNED IT WITH NO QUESTIONS/CONCERNS. BOTH PT AND STATED THEY FEEL COMFORTABLE WITH DC. THEY DENIED HAVING DC NEEDS. THIS WORKER PROVIDED THEM WITH THIS WORKER'S CONTACT INFO IN CASE QUESTIONS DO ARISE, AND THEY SAID OK.
--- NOTE | 2017-02-15 13:50 | NUR ---
STATUS/DISCHARGE PT A&OX3. DENIES CHEST PAIN/OTHER PAIN. PT UP IN ROOM AND WALKING IN CCU HALLWAY, TOLERATING WELL. DISCONTINUED IV, SITE IS ASYMPTOMATIC, CATHETER INTACT. LT WRIST AND DRESSING ARE ASYMPTOMATIC, C/D/I, WITH SPLINT IN PLACE. RT GROIN AND DRESSING ARE ASYMPTOMATIC, C/D/I. REVIEWED DISCHARGE INSTRUCTIONS WITH PT AND , ANSWERING ALL QUESTIONS. PT COMMITS TO FOLLOW-UP APPT WITH DR. MAYFIELD, February @ 12:30, AND TO MAKE APPT WITH PCP. RN ACCOMPANIED PT TO ED ENTRANCE TO FAMILY CAR, DRIVING. PT AND EXPRESSED APPRECIATION TO RN FOR NURSING CARES. PLAVIX: RN CALLED IN NEW PLAVIX PRESCRIPTION TO [facility] PER PT PREFERRED PHARMACY. ORDER GIVEN TO Vicki AN. HOME MEDICATION: SPRAY NITRO WAS NOT FOUND PT DISCHARGED. RN MADE INQUIRY TO SURGICAL UNIT, NOT FOUND. INQUIRY TO PHARMACY, NOT FOUND. PT REMARKS, "THAT'S OK, I HAVE ANOTHER BOTTLE AT HOME." RN COLLECTED 'S CELL PHONE NUMBER IF ANY FOLLOW-UP RECEIVED TODAY. HOME MEDICATIONS: ALL REMAINING HOME MEDICATIONS SENT WITH PT IN PLASTIC SHOE BOX. NO FURTHER COMPLAINTS OR CONCERNS VOICED BY PT OR .
--- NOTE | 2017-02-16 23:04 | DSF ---
HISTORY Mr. Dumont is a very pleasant 66-year-old male, well known to me, with prior coronary stents, CABG and diabetes mellitus. He had been under a lot of stress at home due to family problems. He presented to the office with ongoing chest pain although described as mild, 2/10, partially relieved with sublingual nitroglycerin. He just had an abnormal stress nuclear scan the previous week. As a matter of fact, he was in to discuss results. I admitted him directly to initially outpatient telemetry bed. That was changed to inpatient status following heart catheterization which showed subtotal occlusion of the obtuse marginal branch. His bypasses were all open although the flow in the MARSHALL graft was sluggish. Patient was loaded with Plavix and treated with intravenous heparin and transferred to CCU, now inpatient status. Serial troponins were obtained and although showed a trend in increase, it never went out of the normal range. We allowed him time to excrete the dye with gentle IV hydration. The following morning creatinine was normal and he underwent drug-eluting stent placement at my request by Dr. Hany Rich on 02/14/2017. He was observed overnight and had no complications. His heart catheterization sites were clear and dry. He was asymptomatic, ambulatory, feeling better and ready and anxious for discharge. We made arrangements for outpatient cardiac rehab and I went over with the patient healthy lifestyle changes, increase in activity and healthy dietary habits. [facility] Triglycerides 247, cholesterol 128, LDL 43.6, VLDL 49.4, HDL 35. Normal creatinine. Normal liver enzymes. HgA1c 6.7. FINAL DIAGNOSES 1. Unstable angina. 2. Coronary artery disease with prior multiple stents, CABG. This time required a drug-eluting stent, 3.0 x 18 to the obtuse marginal branch. 3. Type 2 diabetes mellitus. 4. Dyslipidemia. 5. Hypertension. 6. Anxiety and depression. ACTIVITIES Post heart catheterization restrictions were provided to the patient. DIET [id number] ADA diet advised. FOLLOWUP Follow up with Dr. Aranda in one week if available. Return to see me as scheduled in my office. Outpatient cardiac rehab to reiterate and encourage healthy lifestyle. [facility]
== END 2017-02-15 13:50 | disposition home or self-care (01) | DRG 247 ==
LOC: SRG 14:09 → OBSVTOIN 21:11 → CCU 22:14
PROVIDERS: ADMIT Internal Medicine Cardiovascular Disease; ATTEND Internal Medicine Cardiovascular Disease
PROC: 027034Z Dilation of Coronary Artery, One Artery with Drug-eluting Intraluminal Device, Percutaneous Approach (ICD-10-PCS; principal; 2017-02-14)
PROC: 4A023N7 Measurement of Cardiac Sampling and Pressure, Left Heart, Percutaneous Approach (ICD-10-PCS; 2017-02-14)
PROC: B2151ZZ Fluoroscopy of Left Heart using Low Osmolar Contrast (ICD-10-PCS; 2017-02-14)
PROC: B2111ZZ Fluoroscopy of Multiple Coronary Arteries using Low Osmolar Contrast (ICD-10-PCS; 2017-02-14)
PROC: B2121ZZ Fluoroscopy of Single Coronary Artery Bypass Graft using Low Osmolar Contrast (ICD-10-PCS; 2017-02-14)
PROC: B2181ZZ Fluoroscopy of Left Internal Mammary Bypass Graft using Low Osmolar Contrast (ICD-10-PCS; 2017-02-14)
DX: I25.110 Atherosclerotic heart disease of native coronary artery with unstable angina pectoris (principal); E11.9 Type 2 diabetes mellitus without complications; I10 Essential (primary) hypertension; G47.33 Obstructive sleep apnea (adult) (pediatric); E78.5 Hyperlipidemia, unspecified; F41.9 Anxiety disorder, unspecified; F32.9 Major depressive disorder, single episode, unspecified; Z79.82 Long term (current) use of aspirin; Z95.1 Presence of aortocoronary bypass graft
CPT/HCPCS: 36415; 80048; 80053; 80061; 83036; 84484; 85025; 93005; 93458; 93459